=== PATIENT | female | born 1965 | race Caucasian/White ===

== ENCOUNTER → 2016-11-14 | Outpatient (REF) | payer MEDICARE, MEDICAID ==
[~2016-11-14] MED LIST: /CARBXR20T PO; /DIVA50TA PO; /METO25TAB PO; AMLO5TAB2 PO; AMOX500C PO; ASTE137S; ATOR1TAB19 PO; BACL10TA2 PO; BENA25CA PO; BISA5TAB64 PO; CARB100C PO; CARB20TAXR PO; CITA40TA PO; CITA40TA4 PO; CYCL10TA PO; DEXA2TA PO; DIVA125C5 PO; GABA300C2 PO; HYDR-3713 PO; HYDR1CR EXT; INSULANT SC; KEFL500C7 PO; LISI-542 PO; LISI5TAB PO; LOPR1TAB6 PO; MAGN400C2 PO; METF500T PO; METO25TA74 PO; MOM30SS PO; NORCOTAB PO; OMEP20CA3 PO; PANT40TA2 PO; PERC7.5T12 PO; PHENYTOIN PO; SENE8.6T3 PO; SOMA350T PO; TRAZ50TA2 PO; TRAZ50TA4 PO; TRAZO50TA PO; TYLE325T5 PO; VARE1TA PO
[2016-11-14 17:29] LABS: BASO % 0.4 % (0.0-1.0); EOS # 0.2 K/mm3 (0.0-0.50); EOS % 3.1 % (0.0-3.0); LARGE UNSTAINED CELL # 0.2 K/mm3 (0.0-0.4); LARGE UNSTAINED CELL % 2.8 % (0.0-4.0); LYMPH # 1.5 K/mm3 (1.5-4.5); LYMPH % 26.7 % (24.0-44.0); MEAN CORPUSCULAR HEMOGLOBIN 28.7 pg (27.0-33.0); MEAN CORPUSCULAR HGB CONC 32.8 g/dl (32.0-36.5); MEAN CORPUSCULAR VOLUME 87.4 fl (80.0-96.0); MONO # 0.4 K/mm3 (0.0-0.8); MONO % 6.4 % (0.0-5.0); NEUTROPHILS # 3.5 K/mm3 (1.8-7.7); NEUTROPHILS % 60.5 % (36.0-66.0); PLATELET COUNT, AUTOMATED 275 k/mm3 (150-450); RED CELL DISTRIBUTION WIDTH 13.3 % (11.5-14.5); WHITE BLOOD COUNT 5.7 K/mm3 (4.0-10.0)
[2016-11-14 17:43] LABS: ALBUMIN 3.8 GM/DL (3.2-5.2); ALBUMIN/GLOBULIN RATIO 0.93 (1.00-1.93); ALKALINE PHOSPHATASE 96 U/L (45-117); ALT/SGPT 38 U/L (12-78); ANION GAP 11 MEQ/L (8-16); AST/SGOT 24 U/L (15-37); BILIRUBIN,TOTAL 0.7 MG/DL (0.2-1.0); BLOOD UREA NITROGEN 12 MG/DL (7-18); CALCIUM LEVEL 8.8 MG/DL (8.5-10.1); CARBON DIOXIDE LEVEL 24 MEQ/L (21-32); CHLORIDE LEVEL 102 MEQ/L (98-107); CHOLESTEROL LEVEL 180 MG/DL (<200); CREATININE FOR GFR 0.94 MG/DL (0.55-1.02); GLOMERULAR FILTRATION RATE > 60.0 (>51); GLUCOSE, FASTING 288 MG/DL (70-105); SODIUM LEVEL 137 MEQ/L (136-145); TOTAL PROTEIN 7.9 GM/DL (6.4-8.2); TRIGLYCERIDES LEVEL 289 MG/DL (<150)
[2016-11-14 18:35] LABS: ERYTHROCYTE SEDIMENTATION RATE 11 mm/hr (0-30)
== END ==
LOC: M SFHCCLAY 10:22
PROVIDERS: ATTEND Family Medicine
DX: I10 Essential (primary) hypertension (principal); R21 Rash and other nonspecific skin eruption; E11.9 Type 2 diabetes mellitus without complications; E78.5 Hyperlipidemia, unspecified
CPT/HCPCS: 80053; 80061; 83036; 85025; 85652; 86038; 86140; 86200; 86431; G0463

== ENCOUNTER 2017-05-30 13:27 | Day surgery (SDC) | payer MEDICARE, MEDICAID ==
[~2017-05-30] VITALS: Ht 172.7 cm; Wt 105.2 kg
[~2017-05-30 13:27] MED LIST changes: +KEFL500C17 PO; -KEFL500C7 PO; +METF500T13 PO; +METO1TAB32 PO; -METO25TA74 PO; +TRAZ50TA11 PO; -TRAZ50TA4 PO
[2017-05-30] MEDS ORDERED: BYDU1INJ SC (13:42)
[2017-05-30] MEDS ORDERED: INVO100T PO (13:42)
[2017-05-30] MEDS ORDERED: NS 1,000 ML IV SCH (13:45)
[2017-05-30 14:27] LABS: ANION GAP 7 MEQ/L (8-16); BLOOD UREA NITROGEN 10 MG/DL (7-18); CALCIUM LEVEL 8.9 MG/DL (8.5-10.1); CARBON DIOXIDE LEVEL 26 MEQ/L (21-32); CHLORIDE LEVEL 107 MEQ/L (98-107); GLOMERULAR FILTRATION RATE > 60.0 (>51); GLUCOSE, FASTING 100 MG/DL (70-105); POTASSIUM SERUM 3.9 MEQ/L (3.5-5.1); SODIUM LEVEL 140 MEQ/L (136-145)
[2017-05-30 14:34] LABS: BASO # 0.1 10^3/uL (0.0-0.2); BASO % 0.6 % (0.0-1.0); EOS # 0.1 10^3/uL (0.0-0.50); EOS % 1.4 % (0.0-3.0); IMMATURE GRANULOCYTE % 0.4 % (0-0); LYMPH % 26.1 % (24.0-44.0); MEAN CORPUSCULAR HEMOGLOBIN 28.1 pg (27.0-33.0); MEAN CORPUSCULAR HGB CONC 33.6 g/dl (32.0-36.5); MEAN CORPUSCULAR VOLUME 83.5 fl (80.0-96.0); MONO # 0.8 10^3/uL (0.0-0.8); MONO % 10.3 % (0.0-5.0); NEUTROPHILS # 4.7 10^3/uL (1.8-7.7); NEUTROPHILS % 61.2 % (36.0-66.0); PLATELET COUNT, AUTOMATED 267 10^3/uL (150-450); RED CELL DISTRIBUTION WIDTH 14.6 % (11.5-14.5); WHITE BLOOD COUNT 7.8 10^3/uL (4.0-10.0)
[2017-05-30 14:38] LABS: ADD MORPHOLOGY? NO
[2017-05-30] MEDS ORDERED: HYDR50TA70 PO (14:53)
[2017-05-30] MEDS ORDERED: BACL10TA2 PO (14:53)
[2017-05-30] MEDS ORDERED: ATOR1TAB21 PO (14:53)
[2017-05-30] MEDS ORDERED: METO1TAB87 PO (14:53)
[2017-05-30] MEDS ORDERED: MAGN500T14 PO (14:53)
[2017-05-30] MEDS ORDERED: METF-729 PO (14:53)
[2017-05-30] MEDS ORDERED: ceFAZolin 2 GM/D5W 50 ML IV BAG (J0690) As Ordered ONE (15:02)
[2017-05-30] MEDS ORDERED: ceFAZolin 1GM INJ (J0690) As Ordered ONE (15:02)
[2017-05-30] MEDS ORDERED: MORPHINE 2 MG/ML 1ML SYRINGE IV PRN ×2 (15:45→18:30)
[2017-05-30] MEDS ORDERED: MORPHINE 2 MG/ML 1ML SYRINGE As Ordered ONE (15:46)
[2017-05-30] MEDS ORDERED: PROPOFOL 200 MG/20 ML VIAL As Ordered ONE ×2 (16:39→17:30)
[2017-05-30] MEDS ORDERED: LIDOCAINE 2% INJ 100 MG/5 ML SDV (FOR ANES.) As Ordered ONE (16:39)
[2017-05-30] MEDS ORDERED: fentaNYL 100 MCG/2 ML INJECTION (J3010) As Ordered ONE (16:39)
[2017-05-30] MEDS ORDERED: MIDAZOLAM INJ 2 MG/2 ML VIAL (J2250) As Ordered ONE (16:40)
[2017-05-30] MEDS ORDERED: NORCO, ANEXSIA 5/325MG TABLET (HYDROcodone/ACETAMINOPHEN) As Ordered ONE (18:17)
[2017-05-30] MEDS ORDERED: ONDANSETRON 4MG/2ML VIAL (J2405) As Ordered ONE (18:17)
[2017-05-30] MEDS: NORCO, ANEXSIA 5/325MG TABLET (HYDROcodone/ACETAMINOPHEN) PO PRN (18:29)
[2017-05-30] MEDS ORDERED: fentaNYL 100 MCG/2 ML INJECTION (J3010) IV PRN (18:30)
[2017-05-30] MEDS ORDERED: ONDANSETRON 4MG/2ML VIAL (J2405) IV PRN (18:30)
[2017-05-30] MEDS ORDERED: LR 1,000 ML IV SCH (18:30)
[2017-05-30] MEDS ORDERED: MORPHINE 4 MG/ML 1ML SYRINGE IV PRN (18:30)
[2017-05-30] MEDS ORDERED: NORCO, ANEXSIA 5/325MG TABLET (HYDROcodone/ACETAMINOPHEN) PO PRN (18:30)
--- NOTE | 2017-05-30 18:32 | REP ---
Right ankle three intraoperative fluoroscopic views: There is internal fixation of the lateral medial malleoli. The final films demonstrate the hardware and fractures to be in satisfactory positions alignment. Fluoroscopic exposure time is 26 seconds. Fluoroscopic images are performed with last image hold technology. These images require no additional radiation. Signed by Juno Campbell MD 05/30/2017 06:24 P
[2017-05-30 19:45] VITALS: BP 158/79
[2017-05-30 20:15] VITALS: BP 121/61
[2017-05-30] MEDS ORDERED: LISINOPRIL 5 MG TAB PO SCH (21:00)
[2017-05-30] MEDS ORDERED: HumaLOG INSULIN (NovoLOG) PER UNIT SC SCH (21:00)
[2017-05-30] MEDS ORDERED: CitaloPRAM (CeleXA) 20 MG TAB PO SCH (21:00)
[2017-05-30 21:15] VITALS: BP 130/77
[2017-05-30 21:25] VITALS: BP 130/71
[2017-05-30] MEDS: NS 1,000 ML IV SCH (21:35)
--- NOTE | 2017-05-30 21:49 | ECGEPIP ---
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
[2017-05-30 22:15] VITALS: BP 128/70
[2017-05-30 23:15] VITALS: BP 127/73
[2017-05-31] MEDS: NORCO, ANEXSIA 5/325MG TABLET (HYDROcodone/ACETAMINOPHEN) PO PRN ×4 (00:08→12:08)
[2017-05-31 00:15] VITALS: BP 125/72
[2017-05-31 02:00] VITALS: BP 123/81
[2017-05-31 06:00] VITALS: BP 142/78
[2017-05-31] MEDS ORDERED: HYDR-3713 PO (06:53)
[2017-05-31] MEDS ORDERED: ASPI325T PO (06:53)
[2017-05-31] MEDS: NS 1,000 ML IV SCH (07:00)
[2017-05-31] MEDS: HumaLOG INSULIN (NovoLOG) PER UNIT SC SCH ×2 (07:30→12:00)
[2017-05-31] MEDS ORDERED: PANTOPRAZOLE 40MG TAB (PROTONIX) PO SCH (09:00)
--- NOTE | 2017-05-31 10:16 | RO ---
DATE OF PROCEDURE: 05/30/2017 PREPROCEDURE DIAGNOSIS: Bimalleolar ankle fracture with syndesmotic injury. POSTPROCEDURE DIAGNOSIS: Right bimalleolar ankle fracture. Syndesmotic injury. PROCEDURE: 1. Open reduction internal fixation of right bimalleolar ankle fracture. 2. Stabilization of syndesmosis with a 4.5 cannulated screw. SURGEON: Dr. Con Danielson [facility] ARCHITECT: ANESTHESIA: Spinal. COMPLICATIONS: None. ESTIMATED BLOOD LOSS: Less than 20 mL. TOURNIQUET TIME: 55 minutes. PROCEDURE: Antibiotics were given intravenously preoperatively and successful spinal anesthetic was induced, a tourniquet was placed on right thigh and not inflated. The right lower extremity was carefully prepped and draped in the usual sterile fashion. Then the leg was then elevated and after appropriate time out, the tourniquet inflated. I first addressed the lateral aspect of the ankle by making a longitudinal incision and Bovie cautery was used to coagulate crossing vessels. Otherwise we made full thickness flap down to the fracture site which was identified. I irrigated out the fracture site and made sure I could get anatomic reduction with the point of reduction forceps and confirmed that with fluoroscopic imaging. I then addressed the medial side of the ankle by making a small longitudinal medial incision. Careful dissection through the soft tissues to protect the saphenous vein and nerves was performed down to the fracture site which was identified, opened and irrigated copiously and then I was able to get an open anatomic reduction with point of reduction forceps confirmed by the fluoroscopic image. The piece was relatively small thus I elevated to use a single screw. The guide pin from the 4.5 cannulated screw set was then placed across the fracture site and checked with both the AP, mortise and lateral planes that it was in good position. I measured and placed a 44 partially threaded 4.5 cannulated screw after pre-drilling just the near cortex. This provided excellent firm fixation anatomically to that fracture. Fluoroscopic imaging once the screw was in was confirmed once again that it was in good position and the fracture well reduced. I then turned attention back to the lateral side of the ankle, used the point of reduction forceps once again to get an open anatomic reduction. Once I had done that, I placed an interfragmentary compression screw from anterior to posterior using the 3.5 and then the 2.5 drill using the top hat. However, the available bone to apply the screw was very thin and it had very limited fixation but there was a bite of the screw adequate enough that I kept the screw in place and kept the clamp in position while I contoured it an 8 hole one-third tubular plate. I bent the tip distally appropriately and then fixed the distal aspect of the plate with a cancellous screw and then I secured a 3.5 cortical screw proximal to the fracture site to be sure the plate was aligned with the fibula. I then filled the remaining proximal four holes with 3.5 cortical screws and then the second most distal screw I filled with a 4.0 cancellous screw. Both cancellous screws had excellent purchase and then I left the third most distal screw hole to be used for syndesmotic stabilization. Given the fact I had tenuous repair of the interfragmentary compression screw and this was a relatively high fracture, there is likely some syndesmotic instability, I elected to proceed with a syndesmotic stabilization. I used the guide pin from the 4.5 cannulated screws to drill parallel to the joint, measured and placed the 4.5 cannulated screw across the joint under fluoroscopic imaging and once that was completed, I checked in AP, lateral and mortise planes that now the fracture was nice and anatomically reduced and the hardware in good position. At this point, I was satisfied with the repair, it was very stable. I let the tourniquet down, irrigated out the wounds, closed the deep subdermal tissues with interrupted #2-0 PDS sutures, skin was closed with jocelin covered by Adaptic dry sterile bulky dressing, and she was placed in a well padded short leg plaster cast and then was transferred to the recovery room in stable condition. There were no intraoperative complications. cc: Con Danielson
--- NOTE | 2017-05-31 10:52 | HPE ---
EMERGENCY ROOM (ER) CONSULTATION AND ADMISSION NOTE DATE OF ADMISSION: 05/30/2017 REASON FOR ADMISSION: Right ankle bimalleolar fracture. PRESENT ILLNESS: She is a 51-year-old female, missed a step at her porch at home while she was moving from [place] to [place], [place], this morning and twisted her ankle significantly, fell, and no other injury. Was brought to the emergency room at [facility], was evaluated, and then transferred to [facility] after having been found to have an unstable fracture of the right ankle. Presents today, and I was called to see her for this injury. She does not complain of any other soreness or pain or injury other than the right ankle, which has been splinted, and she does have a small area of abrasion over the anterior aspect of her right knee. No loss of consciousness. No shortness of breath. 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 PAST MEDICAL HISTORY: Noninsulin-dependent diabetes. History of subarachnoid hemorrhage with left-sided stroke. History of depression. History of high blood pressure. Hypercholesterolemia. History of a seizure disorder. PAST SURGICAL HISTORY: She has had C5-6 cervical fusion. She has had a craniotomy for a subarachnoid hemorrhage. Open reduction and internal fixation (ORIF) right wrist fracture. Total abdominal hysterectomy. Right knee epiphyseodesis. Ulnar nerve decompressive surgery. SOCIAL HISTORY: She quit smoking. Does not drink alcohol excessively. She is retired. 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 She is single but has supportive neighbors. She has a home wheelchair and walker that she uses. Her medications at home include: - atorvastatin - baclofen - citalopram - lisinopril - metformin - pantoprazole - trazodone - diazepam - She also gets a weekly injection of a diabetic medicine. ALLERGIES TO MEDICATIONS: No known drug allergies. REVIEW OF SYSTEMS: Otherwise negative and detail, as well as per the history of present illness. On examination, she is alert pleasant female. Temperature at the [facility] is 97. Oxygen (O2) saturations are 97% on room air. Blood pressure 135/66. Respirations 18. Pulse is 68. HEENT examination was benign for any acute trauma. She could elevate both arms up overhead. There is no evidence of any trauma to her clavicles, humeri, elbows, wrists, or forearms. She had a healed scar over the volar aspect of the right forearm and right elbow. Lungs were clear to auscultation. Heart was regular. I do not detect significant murmur. Abdomen was obese. Right lower extremity had a healed scar medially from prior medial epiphyseodesis. She had a posterior splint with an carlota wrap. She could move her toes but had some decreased sensation, which is chronic, she describes from her neuropathy, but there is a palpable dorsalis pedis pulse. There is tenderness medially and laterally about that right ankle. There is a small abrasion over the anterior aspect of the patella area superficially. Left lower extremity is benign. She could do a straight-leg raise on the right leg. No irritability or pain or soreness of the right hip otherwise. Her laboratory studies at the [facility] showed an 8.8 white count with a 38.2 hematocrit, 241 platelets. Electrocardiogram (EKG): Normal sinus rhythm with left axis deviation. X-ray of the right ankle at the [facility] shows a bimalleolar ankle fracture. The mortise is intact. It is a fairly high oblique distal fibula fracture with a transverse small medial malleolar fracture. Tibia/fibula x-rays did not show any other fractures other than her ankle. Present other laboratory studies ordered here by the emergency room physician are presently pending. However, a basic metabolic profile (BMP) did come back showing a sodium of 140, potassium 3.9, chloride 107, bicarbonate 26, BUN 10, creatinine 0.7, calcium 8.9. She is not on blood thinners. So, impression is a 51-year-old female with right bimalleolar ankle fracture. It is a relatively unstable fracture pattern. I would recommend to her, which I did and discussed in detail, that we treat this with open reduction and internal fixation to help try to establish good stability and good anatomic position as best as possible in hopes of getting a good outcome from this fracture. Other options of nonsurgical management would be difficult to manage this in a stable fashion, which may result in some troubles down the road if this heals in a malunion but, unfortunately, doing an open reduction internal fixation requires surgery with the risks involved in that, including infection, damage to nerves, blood vessels, anesthetic complications, phlebitis, embolism, amongst others, failure of the bone to heal properly, amongst other potential outcomes, which are discussed with her. She understands that, but she would like to get this fixed, as well. She understands the need. She has been nothing by mouth, actually since yesterday. I have discussed this with the operating room and discussed this with the emergency room providers, and we plan to proceed when the operating room is available.
--- NOTE | 2017-06-02 15:28 | DSES ---
DATE OF ADMISSION: 05/30/2017 DATE OF DISCHARGE: 05/31/2017 ADMISSION DIAGNOSIS: Bimalleolar ankle fracture with syndesmotic injury. OTHER DIAGNOSES: Ikh-chhpdfk-wftnvdzcr diabetes, CVA, depression, hypertension, elevated cholesterol, seizure disorder. DISCHARGE DIAGNOSIS: Bimalleolar right ankle fracture with syndesmotic injury status post open reduction internal fixation and syndesmosis stabilization. OPERATION PERFORMED: Open reduction internal fixation of a right bimalleolar ankle fracture and stabilization of the syndesmosis. HISTORY: This a 51-year-old female patient who sustained injury to her right ankle when she fell at home. She was seen at the [facility] initially, transferred to the [facility] after noted to have an unstable bimalleolar ankle fracture with syndesmotic injury on the right side. She was seen in the emergency room and was elected to go forth with open reduction internal fixation of her fracture. HOSPITAL COURSE: The patient was admitted on day of surgery and underwent an open reduction internal fixation of her right bimalleolar ankle fracture and stabilization of syndesmotic ligament. She did well in surgery and there was no complications. Her postoperative course was uncomplicated and her hospital stay was uncomplicated as well. On day of discharge she was non-weightbearing on the right lower extremity. She was given instructions to include the use of crutches and the use of her splint and followup. She will followup in our office in 7-10 days for surgical followup. She will resume her preoperative medications and diet. She will use oral pain medications for pain control. Please refer to the medical record for further details.
== END 2017-05-31 12:45 | disposition home or self-care (01) ==
LOC: EDBD 13:27 → M ED 13:27 → M SDC 14:10 → M MS5PR 18:50 → M SDC 05-31 12:45
PROVIDERS: ATTEND Orthopaedic Surgery
DX: S82.841A Displaced bimalleolar fracture of right lower leg, initial encounter for closed fracture (principal); S93.431A Sprain of tibiofibular ligament of right ankle, initial encounter; X50.0XXA Overexertion from strenuous movement or load, initial encounter; Y92.008 Other place in unspecified non-institutional (private) residence as the place of occurrence of the external cause; Y93.89 Activity, other specified; Y99.8 Other external cause status; E11.9 Type 2 diabetes mellitus without complications; I10 Essential (primary) hypertension; E78.00 Pure hypercholesterolemia, unspecified; G40.909 Epilepsy, unspecified, not intractable, without status epilepticus; I69.998 Other sequelae following unspecified cerebrovascular disease; G47.30 Sleep apnea, unspecified; M54.9 Dorsalgia, unspecified; F31.9 Bipolar disorder, unspecified; Z91.09 Other allergy status, other than to drugs and biological substances; Z79.899 Other long term (current) drug therapy; Z98.1 Arthrodesis status; Z90.710 Acquired absence of both cervix and uterus
CPT/HCPCS: 27814; 73610; 80048; 85025; 93005; 96374; 96375; 96376; 97162; 99284; C1776; G8978; G8979; G8980; J0690; J2250; J2405; J3010

== ENCOUNTER → 2018-03-16 | Outpatient (CLI) | payer MEDICARE, MEDICAID ==
[2018-03-16 11:08] LABS: BASO # 0.1 10^3/uL (0.0-0.2); BASO % 0.5 % (0.0-1.0); EOS # 0.2 10^3/uL (0.0-0.50); EOS % 1.6 % (0.0-3.0); HEMATOCRIT 42.1 % (36.0-47.0); HEMOGLOBIN 13.9 g/dl (12.0-15.5); IMMATURE GRANULOCYTE % 0.5 % (0-3.0); LYMPH % 17.9 % (24.0-44.0); MEAN CORPUSCULAR HEMOGLOBIN 28.8 pg (27.0-33.0); MEAN CORPUSCULAR VOLUME 87.2 fl (80.0-96.0); MONO % 8.7 % (0.0-5.0); NEUTROPHILS # 7.9 10^3/uL (1.8-7.7); NEUTROPHILS % 70.8 % (36.0-66.0); PLATELET COUNT, AUTOMATED 265 10^3/uL (150-450); RED BLOOD COUNT 4.83 10^6/uL (4.00-5.40); RED CELL DISTRIBUTION WIDTH 13.9 % (11.5-14.5); WHITE BLOOD COUNT 11.1 10^3/uL (4.0-10.0)
[2018-03-16 11:20] LABS: INR 0.93; PROTHROMBIN TIME 12.5 SECONDS (12.1-14.4)
[2018-03-16 11:31] LABS: COLLAGEN EPINEPHRINE 153 SECONDS (74-162)
[2018-03-16 11:51] LABS: ALBUMIN 3.7 GM/DL (3.2-5.2); ALBUMIN/GLOBULIN RATIO 0.88 (1.00-1.93); ALKALINE PHOSPHATASE 93 U/L (45-117); ALT/SGPT 30 U/L (12-78); ANION GAP 8 MEQ/L (8-16); AST/SGOT 18 U/L (7-37); BILIRUBIN,TOTAL 0.6 MG/DL (0.2-1.0); BLOOD UREA NITROGEN 15 MG/DL (7-18); CARBON DIOXIDE LEVEL 28 MEQ/L (21-32); CHLORIDE LEVEL 104 MEQ/L (98-107); CREATININE FOR GFR 0.97 MG/DL (0.55-1.30); GLOMERULAR FILTRATION RATE > 60.0 (>51); GLUCOSE, FASTING 139 MG/DL (70-100); POTASSIUM SERUM 4.8 MEQ/L (3.5-5.1); SODIUM LEVEL 140 MEQ/L (136-145); TOTAL PROTEIN 7.9 GM/DL (6.4-8.2)
== END ==
LOC: M LAB 10:43
DX: Z01.818 Encounter for other preprocedural examination (principal); R94.31 Abnormal electrocardiogram [ECG] [EKG]; Z79.01 Long term (current) use of anticoagulants; Z79.899 Other long term (current) drug therapy
CPT/HCPCS: 71046

== ENCOUNTER 2018-03-30 06:11 | Inpatient (IN) | payer MEDICARE, MEDICAID ==
[2018-03-30] MEDS: **UNRESOLVED NON-FORMULARY MED ORDER XX (00:01)
[2018-03-30] MEDS ORDERED: ceFAZolin 2 GM/D5W 50 ML IV BAG (J0690 PER 500MG) As Ordered (06:40)
[2018-03-30] MEDS: LR 1,000 ML IV ×4 (07:10→20:45)
[2018-03-30 07:20] LABS: BEDSIDE GLUCOSE 122 MG/DL (70-105)
[2018-03-30] MEDS ORDERED: ROCURONIUM BROMIDE 50 MG/5 ML VIAL As Ordered ×2 (07:20→08:30)
[2018-03-30] MEDS ORDERED: MIDAZOLAM INJ 2 MG/2 ML VIAL (J2250) As Ordered (07:20)
[2018-03-30] MEDS ORDERED: fentaNYL 100 MCG/2 ML INJECTION (J3010) As Ordered ×4 (07:20→11:30)
[2018-03-30] MEDS ORDERED: PROPOFOL 200 MG/20 ML VIAL As Ordered (07:20)
[2018-03-30] MEDS ORDERED: LIDOCAINE 2% INJ 100 MG/5 ML SDV (FOR ANES.) As Ordered (07:21)
[2018-03-30] MEDS ORDERED: dexameTHASONE 4 MG/ML 1ML VIAL (J1100) As Ordered ×2 (07:23)
[2018-03-30] MEDS ORDERED: METOCLOPRAMIDE INJ 10MG/2ML VIAL (J2765) As Ordered (07:23)
[2018-03-30] MEDS ORDERED: ONDANSETRON 4MG/2ML VIAL (J2405) As Ordered (07:23)
[2018-03-30] MEDS ORDERED: GLYCOPYRROLATE INJ 0.2 MG/ML 2 ML VIAL As Ordered (09:26)
[2018-03-30] MEDS ORDERED: PHENYLephrine HCL 500 MCG/5 ML (100MCG/ML) SYRINGE (J2370) As Ordered (09:26)
[2018-03-30] MEDS: THROMBIN SOLN 20,000 UNITS KIT As Ordered (09:41)
[2018-03-30] MEDS ORDERED: PHENYLEPHRINE INJ 10MG/ML VIAL (J2370) As Ordered (09:51)
[2018-03-30] MEDS: BACITRACIN PWD 50,000 UNITS VIAL As Ordered (10:47)
[2018-03-30] MEDS: methylPREDNISolone SUSP 40 MG/ML (DEPO-medrol) VIAL (J1030) As Ordered (10:47)
[2018-03-30] MEDS ORDERED: KETOROLAC 60 MG/2 ML VIAL (J1885) As Ordered (10:50)
[2018-03-30 11:29] LABS: BEDSIDE GLUCOSE 176 MG/DL (70-105)
[2018-03-30] MEDS: NORCO, ANEXSIA 5/325MG TABLET (HYDROcodone/ACETAMINOPHEN) PO ×2 (11:30→20:47)
[2018-03-30] MEDS ORDERED: NORCO, ANEXSIA 5/325MG TABLET (HYDROcodone/ACETAMINOPHEN) As Ordered (11:30)
[2018-03-30] MEDS: fentaNYL 100 MCG/2 ML INJECTION (J3010) IV ×4 (11:30→11:55)
[2018-03-30] MEDS ORDERED: ONDANSETRON 4MG/2ML VIAL (J2405) IV ×2 (11:45→12:30)
[2018-03-30] MEDS ORDERED: ACETAMINOPHEN TAB 650MG DOSE (2X325MG) PO (12:30)
[2018-03-30 14:28] LABS: BEDSIDE GLUCOSE 160 MG/DL (70-105)
[2018-03-30] MEDS: HumaLOG INSULIN (NovoLOG) PER UNIT SC ×2 (14:43→20:49)
[2018-03-30] MEDS: diazePAM 5 MG TAB PO (17:20)
[2018-03-30] MEDS: HYDROXYCHLOROQUINE 200 MG TAB PO (17:49)
[2018-03-30] MEDS: MORPHINE 4 MG/ML 1ML VIAL/SYRINGE (J2270) IV ×2 (17:50→23:59)
[2018-03-30 19:50] LABS: BEDSIDE GLUCOSE 153 MG/DL (70-105)
[2018-03-30] MEDS: LISINOPRIL 5 MG TAB PO (20:46)
[2018-03-30] MEDS: METOPROLOL TART 25 MG TABLET PO (20:47)
[2018-03-31] MEDS: **UNRESOLVED NON-FORMULARY MED ORDER XX (00:01)
[2018-03-31 04:00] LABS: BEDSIDE GLUCOSE 115 MG/DL (70-105)
[2018-03-31] MEDS: MORPHINE 4 MG/ML 1ML VIAL/SYRINGE (J2270) IV (04:40)
[2018-03-31] MEDS: HumaLOG INSULIN (NovoLOG) PER UNIT SC (05:34)
[2018-03-31] MEDS: ATORVASTATIN 20 MG TAB PO (09:00)
[2018-03-31] MEDS: metFORMIN (GLUCOPHAGE) 1000 MG TABLET PO (09:00)
[2018-03-31] MEDS: DULoxetine 30 MG CAP (CYMBALTA) PO (09:00)
[2018-03-31] MEDS: HYDROXYCHLOROQUINE 200 MG TAB PO (09:00)
[2018-03-31] MEDS: amLODIPine 5 MG TAB PO (09:04)
[2018-03-31] MEDS: METOPROLOL TART 25 MG TABLET PO (09:04)
[2018-03-31] MEDS: NORCO, ANEXSIA 5/325MG TABLET (HYDROcodone/ACETAMINOPHEN) PO (09:05)
[2018-03-31] MEDS: OMEPRAZOLE 20 MG CAP PO (09:05)
[2018-03-31] MEDS: LR 1,000 ML IV (11:20)
== END 2018-03-31 11:24 | disposition home or self-care (01) | DRG 460 ==
LOC: M OR 06:11 → M MSPAV 12:52
PROVIDERS: Neurological Surgery
PROC: 0SG1071 Fusion of 2 or more Lumbar Vertebral Joints with Autologous Tissue Substitute, Posterior Approach, Posterior Column, Open Approach (ICD-10-PCS; principal; 2018-03-30 07:30)
PROC: 0SB20ZZ Excision of Lumbar Vertebral Disc, Open Approach (ICD-10-PCS; 2018-03-30 07:30)
DX: M47.27 Other spondylosis with radiculopathy, lumbosacral region (principal); E66.9 Obesity, unspecified; M48.062 Spinal stenosis, lumbar region with neurogenic claudication; E11.9 Type 2 diabetes mellitus without complications; I10 Essential (primary) hypertension; F32.9 Major depressive disorder, single episode, unspecified; G40.909 Epilepsy, unspecified, not intractable, without status epilepticus; E78.5 Hyperlipidemia, unspecified; M32.9 Systemic lupus erythematosus, unspecified; Z86.73 Personal history of transient ischemic attack (TIA), and cerebral infarction without residual deficits; Z98.41 Cataract extraction status, right eye; Z98.42 Cataract extraction status, left eye; Z87.81 Personal history of (healed) traumatic fracture; Z79.84 Long term (current) use of oral hypoglycemic drugs; Z79.899 Other long term (current) drug therapy; Z87.891 Personal history of nicotine dependence; Z68.32 Body mass index [BMI] 32.0-32.9, adult

== ENCOUNTER → 2019-02-16 | Outpatient (REF) | payer MEDICARE, MEDICAID ==
[~2019-02-16] MED LIST changes: -/CARBXR20T PO; -/DIVA50TA PO; -/METO25TAB PO; +AMLO5TAB6 PO; +ASPI-1 PO; +ATOR1TAB21 PO; +BYDU1INJ SC; +DEPA1TAB3 PO; +DULO1CAP2 PO; +HYDR-3715 PO; -HYDR1CR EXT; +HYDR1CRE93 EXT; +HYDR200T3 PO; +HYDR50TA70 PO; +INVO100T PO; +MAGN500T14 PO; +METF-729 PO; +METF10004 PO; +METO1TAB87 PO; -NORCOTAB PO; -PANT40TA2 PO; +PANT40TA3 PO; +TEGR1TAB PO; +TIZA4CAP PO; +TRAZ-252 PO; +TRAZ1TAB36 PO; -TRAZ50TA11 PO; -TRAZO50TA PO; +VALI5TAB PO
[2019-02-16 13:23] LABS: AMORPHOUS SEDIMENT SMALL (NEGATIVE); APPEARANCE, URINE HAZY (CLEAR); BACTERIA, URINE AUTO 1+ (NEGATIVE); BILIRUBIN, URINE AUTO NEGATIVE (NEGATIVE); BLOOD, URINE BLOOD NEGATIVE (NEGATIVE); COLOR, URINE YELLOW (YELLOW); GLUCOSE, URINE (UA) AUTO 3+ mg/dL (NEGATIVE); KETONE, URINE AUTO NEGATIVE (NEGATIVE); LEUKOCYTE ESTERASE, URINE AUTO TRACE (NEGATIVE); MUCUS, URINE SMALL (NEGATIVE); NITRITE, URINE AUTO NEGATIVE (NEGATIVE); PROTEIN, URINE AUTO NEGATIVE (NEGATIVE); RBC, URINE AUTO 2 /HPF (0-3); SPECIFIC GRAVITY URINE AUTO 1.009 (1.002-1.035); SQUAMOUS EPITHELIAL CELL UR AU 5 /HPF (0-6); UROBILINOGEN, URINE AUTO 0.2 mg/dL (0.0-2.0); WBC, URINE AUTO 8 /HPF (0-3)
[2019-02-16 13:47] LABS: BASO % 0.5 % (0.0-1.0); EOS # 0.2 10^3/uL (0.0-0.50); EOS % 1.7 % (0.0-3.0); HEMATOCRIT 42.1 % (36.0-47.0); HEMOGLOBIN 13.4 g/dl (12.0-15.5); LYMPH # 2.1 10^3/uL (1.5-4.5); LYMPH % 24.2 % (24.0-44.0); MEAN CORPUSCULAR HEMOGLOBIN 26.8 pg (27.0-33.0); MEAN CORPUSCULAR HGB CONC 31.8 g/dl (32.0-36.5); MEAN CORPUSCULAR VOLUME 84.2 fl (80.0-96.0); MONO # 0.6 10^3/uL (0.0-0.8); MONO % 7.1 % (0.0-5.0); NEUTROPHILS # 5.8 10^3/uL (1.8-7.7); NEUTROPHILS % 66.2 % (36.0-66.0); PLATELET COUNT, AUTOMATED 328 10^3/uL (150-450); WHITE BLOOD COUNT 8.8 10^3/uL (4.0-10.0)
[2019-02-16 13:49] LABS: CREATININE,RANDOM URINE 51.3 MG/DL; TOTAL PROTEIN,RANDOM URINE 24.2 MG/DL (0.0-12.0)
[2019-02-16 13:51] LABS: ALBUMIN 3.9 GM/DL (3.2-5.2); BILIRUBIN,TOTAL 0.4 MG/DL (0.2-1.0); CALCIUM LEVEL 9.5 MG/DL (8.5-10.1); CREATININE FOR GFR 1.15 MG/DL (0.55-1.30); GLOMERULAR FILTRATION RATE 52.3 (>51); POTASSIUM SERUM 4.9 MEQ/L (3.5-5.1); TOTAL PROTEIN 8.2 GM/DL (6.4-8.2)
[2019-02-21 10:08] LABS: ANTI DS-DNA AB <1:10 titer (.)
== END ==
LOC: M SFHCPLAZ 10:08
PROVIDERS: ATTEND Internal Medicine Rheumatology
DX: R76.8 Other specified abnormal immunological findings in serum (principal)
CPT/HCPCS: 36415; 80053; 81001; 82570; 84156; 85025; 86160; 86225; G0463

== ENCOUNTER → 2020-02-17 | Outpatient (REF) | payer MEDICARE, MEDICAID ==
[~2020-02-17] MED LIST changes: +CYCL-707 PO; -CYCL10TA PO; -DULO1CAP2 PO; +DULO1CAP5 PO
[2020-02-17 16:21] LABS: BASO # 0.1 10^3/uL (0.0-0.2); BASO % 0.6 % (0.0-1.0); EOS # 0.3 10^3/uL (0.0-0.5); EOS % 2.9 % (0.0-3.0); HEMATOCRIT 41.1 % (36.0-47.0); HEMOGLOBIN 12.8 g/dl (12.0-15.5); LYMPH # 2.4 10^3/uL (1.5-5.0); LYMPH % 24.2 % (24.0-44.0); MEAN CORPUSCULAR HGB CONC 31.1 g/dl (32.0-36.5); MEAN CORPUSCULAR VOLUME 80.4 fl (80.0-96.0); MONO # 0.7 10^3/uL (0.0-0.8); MONO % 7.1 % (0.0-5.0); NEUTROPHILS # 6.5 10^3/uL (1.5-8.5); NEUTROPHILS % 64.9 % (36.0-66.0); PLATELET COUNT, AUTOMATED 360 10^3/uL (150-450); RED BLOOD COUNT 5.11 10^6/uL (4.00-5.40); WHITE BLOOD COUNT 10.1 10^3/uL (4.0-10.0)
[2020-02-17 16:42] LABS: ALBUMIN 3.4 GM/DL (3.2-5.2); ALT/SGPT 19 U/L (12-78); BILIRUBIN,TOTAL 0.3 MG/DL (0.2-1.0); BLOOD UREA NITROGEN 17 MG/DL (7-18); CALCIUM LEVEL 9.1 MG/DL (8.5-10.1); CARBON DIOXIDE LEVEL 25 MEQ/L (21-32); CHLORIDE LEVEL 104 MEQ/L (98-107); CHOLESTEROL LEVEL 154 MG/DL (<200); CHOLESTEROL RISK RATIO 3.347 (<5); CREATININE FOR GFR 0.95 MG/DL (0.55-1.30); GLOMERULAR FILTRATION RATE > 60.0 (>51); GLUCOSE, FASTING 121 MG/DL (70-100); HDL CHOLESTEROL 46 MG/DL (>40); LDL CHOLESTEROL 80 MG/DL (<100); NON-HDL-C 108 MG/DL; POTASSIUM SERUM 4.9 MEQ/L (3.5-5.1); SODIUM LEVEL 136 MEQ/L (136-145); TOTAL PROTEIN 7.6 GM/DL (6.4-8.2); TRIGLYCERIDES LEVEL 140 MG/DL (<150)
== END ==
LOC: M SFHCCLAY 13:31
PROVIDERS: ATTEND Family Medicine
DX: I10 Essential (primary) hypertension (principal); E78.5 Hyperlipidemia, unspecified
CPT/HCPCS: 80053; 80061; 85025; G0463

== ENCOUNTER → 2020-03-20 | Outpatient (CLI) | payer MEDICARE, MEDICAID ==
[~2020-03-20] MED LIST changes: +AMLO1TAB24 PO; -AMLO5TAB6 PO; +PANT40TA29 PO; -PANT40TA3 PO
--- NOTE | 2020-03-20 20:26 | REPVR ---
PROCEDURE INFORMATION: Exam: MR Head Without Contrast Exam date and time: 03/20/2020 4:46 PM Age: 54 years old Clinical indication: Condition or disease; Other: History of stroke, change in vision, unsteady gait; Prior surgery; Surgery date: 6+ months; Surgery type: Coiling TECHNIQUE: Imaging protocol: MR of the head without contrast. COMPARISON: MRI-Brain W/CON 05/16/2013 9:56 AM FINDINGS: Brain: Small focus of hyperintensity on diffusion-weighted imaging projecting over the posterior superior aspect of the cerebellum near the tentorium may represent artifact. No other diffusion-weighted abnormalities. Status post right posterior parietal craniotomy with white matter changes either related to infarct or prior surgery. Diffuse parenchymal atrophy. Scattered foci T2 lengthening demonstrated in the periventricular and centrum semiovale white matter indicating mild age related white matter disease. Ventricles: Ipsilateral ex vacuo enlargement of the posterior horn of the right lateral ventricle. Bones/joints: Unremarkable. Sinuses: Normal as visualized. No acute sinusitis. Mastoid air cells: Normal as visualized. No mastoid effusion. Orbits: Unremarkable. Soft tissues: Unremarkable. IMPRESSION: 1. Status post right posterior parietal craniotomy with white matter changes either related to infarct or prior surgery. 2. Ipsilateral ex vacuo enlargement of the posterior horn of the right lateral ventricle. 3. Diffuse parenchymal atrophy. 4. Scattered foci T2 lengthening demonstrated in the periventricular and centrum semiovale white matter indicating mild age related white matter disease. Electronically signed by: Jf Lind On 03/20/2020 20:25:51 PM
== END ==
LOC: M RAD 03-06 08:49
PROVIDERS: ATTEND Family Medicine
DX: H53.9 Unspecified visual disturbance (principal); R26.81 Unsteadiness on feet; Z86.73 Personal history of transient ischemic attack (TIA), and cerebral infarction without residual deficits

== ENCOUNTER 2021-01-16 21:23 | Inpatient (IN) | payer MEDICARE, MEDICAID ==
[~2021-01-16] VITALS: Ht 172.7 cm; Wt 91.5 kg
[~2021-01-16 21:23] MED LIST changes: -LISI-542 PO; +LISI-898 PO
[2021-01-16 23:06] VITALS: BP 135/71
[2021-01-16] MEDS ORDERED: MOM 30ML SUSPENSION UDC PO PRN (23:45)
[2021-01-16] MEDS ORDERED: DEXTROSE 50% 50 ML SYRINGE IV PRN (23:45)
[2021-01-16] MEDS ORDERED: MAALOX 30 ML SUSP *UDC PO PRN (23:45)
[2021-01-16] MEDS ORDERED: GLUCOSE 4GM CHEW TABLET PO PRN (23:45)
[2021-01-16] MEDS ORDERED: GLUCAGON INJ 1MG VIAL SC PRN (23:45)
[2021-01-16] MEDS ORDERED: ACETAMINOPHEN TAB 650MG DOSE (2X325MG) PO PRN (23:45)
--- NOTE | 2021-01-16 23:46 | HPEPDOC ---
[facility] Medical History & Physical Date of Admission January 17, 2021 Date of Service: January 17, 2021 Primary Care Physician: Daniel Gagnon Attending Physician: SHIRLEY SOLIS MD History and Physical TIME OF SERVICE: 1151pm CHIEF COMPLAINT: foot pain HISTORY OF PRESENT ILLNESS: This 55 yr old F has had right 1st toe pain due to an ulcer for about 2 weeks; she didnt have f/c but had difficulties walking so she went to [facility] were her vital signs were noted to be wnl; her blood work was remarkable for a Hg of 10, CRP of 40.4, Mg of 1.6, albumin of 2.8 and glucose f 152. [place], the provider taking care of her felt that the xray findings were c/w osteomyelitis, therefore he started her on Vanc & Zozyn and requested transfer here for to see the pt. REVIEW OF SYSTEMS: 12-point review of systems negative except as listed in HPI PAST MEDICAL/ SURGICAL HISTORY: NIDDM, pseudoseizures, disorder, Depression, GERD, DLP, essential HTN, CVA, hx of Endocarditis, unspecified valvulopathy, SLE, Craniotomy (reason unclear), obesity, LUDIVINA BIPAP 8/, bilateral ulnar release surgeries, bilateral cataract surgeries, hysterectomy, R arm ORFI, R ankle ORIF, R knee surgery, C5-6 fusion, L4-5 fusion SOCIAL HISTORY: She smokes, drinks alcohol occasionally, is unemployed and lives w her significant other who is a Nuclear Chemistry Technician FAMILY HISTORY: Father Lung cancer, HTN, CAD / Mother CKD / Brother of a O D in January / ALLERGIES: Please see below. HOME MEDICATIONS: Please see below. PHYSICAL EXAMINATION: Vital Signs Date Time Temp Pulse Resp B/P (MAP) Pulse Ox O2 Delivery O2 Flow Rate FiO2 01/16/21 23:06 98.1 75 20 135/71 (92) 94 Room Air GENERAL APPEARANCE: well nourished and developed / NAD HEENT: EOMI / MMM&P CARDIOVASCULAR: RRR/NMRG LUNGS: CTAB on RA ABDOMEN: contour obese MUSCULOSKELETAL: KAILEY x 4 INTEGUMENT: not flushed, pale or or diaphoretic / there is an ulcer that is > 3cm with purulent discharge at the right hallux NEUROLOGICAL: CN 2-12 grossly intact /speech not dysarthric PSYCHIATRIC: A&O x 3 /able to understand and follow all commands LABORATORY DATA: see HPI IMAGING: see HPI MICROBIOLOGY: COVID test done at [facility] ASSESSMENT: is a 55 yr old w NIDDM, Depression, DLP, HTN, CVA, SLE, obesity & LUDIVINA who was transferred from [facility] for surgical management of suspected right hallux osteomyelitis. PLAN: 1 Suspected Right Hallux Osteomyelitis Likely due to DM Ulcer She doesnt meet SIRS criteria Her RCRI score is 1, so we will check her pro-BNP prior to proceeding with surgery (if the pro-BNP >300 she will need to be put on telemetry and have troponins checked daily / if its <300 she will not need any additional tests) Plan: f/u repeat blood work / c/w Zosyn / per d/w will keep her NPO w IVF and anticpate surgery in the AM 2 Normocytic anemia Plan: f/u Iron studies and stool occult 3 NIDDM, Plan: f/u accuchecks / hypoglycemia protocol / sliding scale insulin / hold oral anti-glycemicS / f/u A1C (target A1C is <7 to 6.5%) 4 SLE Plan; Hydroxychloroquine 5 Essential HTN Plan: Amlodipine, Metoprolol / hold lisinopril to reduce perioperative risk of hypotensionand resume it on on day #2 after surgery 6 Depression / Anxiety ? Plan: Duloxetine Diazepam, Trazodone 7 CVA, DLP Plan: Atorvastatin 8 Obesity & LUDIVINA BMI of 31.5 complicates care Plan: f/u A1C DVT px w pending surgery Dispo: home after at least 2 midnights stay / may need PT eval prior to discha rge to see if she needs a walker temporarily Home Medications Scheduled Amlodipine Besylate (Amlodipine Besylate) 5 Mg Tab, 5 MG PO DAILY Atorvastatin Calcium (Atorvastatin Calcium) 20 Mg Tab, 20 MG PO DAILY Buspirone HCl (Buspirone HCl) 5 Mg Tablet, 10 MG PO QHS Cholecalciferol (Vitamin D3) (Vitamin D3) 1,000 Unit Tablet, 1,000 UNITS PO DAILY Duloxetine Hcl (Duloxetine HCl) 60 Mg Capsule.dr, 120 MG PO DAILY Exenatide Microspheres (Bydureon Bcise) 2 Mg/0.85 Ml Auto.injct, 2 MG SC QWEEK WEDNESDAYS Lisinopril (Lisinopril) 5 Mg Tab, 5 MG PO QHS Metformin HCl (Metformin HCl ER) 500 Mg Tab.er.24h, 1,000 MG PO BID Metoprolol Tartrate (Metoprolol Tartrate) 25 Mg Tab, 75 MG PO BID Pantoprazole Sodium (Pantoprazole Sodium) 40 Mg Tab, 40 MG PO DAILY Trazodone HCl (Trazodone HCl) 150 Mg Tablet, 150 MG PO QHS Scheduled PRN Diazepam (Valium) 5 Mg Tab, 5 MG PO TID PRN for SEIZURES Allergies Coded Allergies: DYE'S (COLOR'S NOT IODINATED) (Verified Allergy, Unknown, HAIR DYE, 03/18/18) SHIRLEY SOLIS MD January 16, 2021 23:46
[2021-01-16] MEDS ORDERED: TRAZ1TAB14 PO (23:58)
[2021-01-16] MEDS ORDERED: DULO1CAP6 PO (23:59)
[2021-01-16] MEDS ORDERED: BYDU2INJ7 SC (23:59)
[2021-01-16] MEDS ORDERED: BUSP5TA PO (23:59)
[2021-01-16] MEDS ORDERED: D31000TA2 PO (23:59)
[2021-01-16] MEDS ORDERED: METF-723 PO (23:59)
[2021-01-17] VITALS (7 sets, daily range): BP systolic 125–151; BP diastolic 62–75
[2021-01-17 00:11] LABS: HEMATOCRIT 32.8 % (36.0-47.0); HEMOGLOBIN 10.4 g/dl (12.0-15.5); MEAN CORPUSCULAR HEMOGLOBIN 25.8 pg (27.0-33.0); MEAN CORPUSCULAR HGB CONC 31.7 g/dl (32.0-36.5); MEAN CORPUSCULAR VOLUME 81.4 fl (80.0-96.0); PLATELET COUNT, AUTOMATED 349 10^3/uL (150-450); RED BLOOD COUNT 4.03 10^6/uL (4.00-5.40)
[2021-01-17] MEDS ORDERED: busPIRone 5 MG TAB PO SCH (00:20)
[2021-01-17] MEDS ORDERED: diazePAM 5MG TABLET PO PRN (00:20)
[2021-01-17] MEDS ORDERED: RAMELTEON 8 MG TAB (ROZEREM) PO PRN (00:20)
[2021-01-17] MEDS: D5W/0.9% SODIUM CHLORIDE 1,000 ML IV SCH ×2 (00:22→19:35)
[2021-01-17] MEDS: HumaLOG INSULIN (NovoLOG) PER UNIT SC SCH ×4 (00:23→19:10)
[2021-01-17 00:30] LABS: HEMOGLOBIN A1c 6.3 %
[2021-01-17 00:34] LABS: ERYTHROCYTE SEDIMENTATION RATE 68 mm/hr (0-30)
[2021-01-17 00:43] LABS: ALBUMIN 2.8 GM/DL (3.2-5.2); ALT/SGPT 13 U/L (12-78); BILIRUBIN,TOTAL 0.3 MG/DL (0.2-1.0); BLOOD UREA NITROGEN 12 MG/DL (7-18); C REACTIVE PROTEIN QUANTITATIV 3.67 MG/DL (0.00-0.30); CALCIUM LEVEL 8.3 MG/DL (8.5-10.1); CARBON DIOXIDE LEVEL 28 MEQ/L (21-32); CHLORIDE LEVEL 106 MEQ/L (98-107); CREATININE FOR GFR 0.74 MG/DL (0.55-1.30); GLOMERULAR FILTRATION RATE > 60.0 (>51); GLUCOSE, FASTING 101 MG/DL (70-100); NT-PRO BNP 213 PG/ML (<125); POTASSIUM SERUM 3.8 MEQ/L (3.5-5.1); SODIUM LEVEL 137 MEQ/L (136-145); TOTAL PROTEIN 6.9 GM/DL (6.4-8.2)
[2021-01-17] MEDS: NICOTINE 21MG/24HR 1 EA TRANSDERMAL TD SCH ×2 (00:48→21:11)
[2021-01-17] MEDS: METOPROLOL TART 25 MG TABLET PO SCH ×3 (00:49→21:13)
[2021-01-17] MEDS: busPIRone 10 MG TAB PO SCH ×2 (00:49→21:11)
[2021-01-17] MEDS: traZODone 50 MG TAB PO SCH ×2 (00:49→21:12)
[2021-01-17] MEDS: MORPHINE 4 MG/ML 1ML VIAL/SYRINGE (J2270) IV PRN ×4 (00:50→22:49)
[2021-01-17] MEDS: PIPERACILLIN/TAZOBACTAM SOD 3.375 GM in D5W MINI-BAG PLUS 50 ML IV SCH ×4 (01:45→19:35)
[2021-01-17 06:22] LABS: HEMATOCRIT 33.6 % (36.0-47.0); HEMOGLOBIN 10.5 g/dl (12.0-15.5); MEAN CORPUSCULAR HEMOGLOBIN 25.7 pg (27.0-33.0); MEAN CORPUSCULAR HGB CONC 31.3 g/dl (32.0-36.5); MEAN CORPUSCULAR VOLUME 82.2 fl (80.0-96.0); PLATELET COUNT, AUTOMATED 372 10^3/uL (150-450); RED BLOOD COUNT 4.09 10^6/uL (4.00-5.40); WHITE BLOOD COUNT 6.5 10^3/uL (4.0-10.0)
[2021-01-17 06:35] LABS: PROTHROMBIN TIME 13.4 SECONDS (12.5-14.3)
[2021-01-17 06:36] LABS: PARTIAL THROMBOPLASTIN TIME 36.2 SECONDS (24.2-38.5)
[2021-01-17 06:47] LABS: MAGNESIUM LEVEL 1.7 MG/DL (1.8-2.4); PERCENT SATURATION 8.6 % (13.2-45.0)
[2021-01-17 06:53] LABS: BLOOD UREA NITROGEN 10 MG/DL (7-18); CALCIUM LEVEL 8.7 MG/DL (8.5-10.1); CARBON DIOXIDE LEVEL 27 MEQ/L (21-32); CHLORIDE LEVEL 108 MEQ/L (98-107); CREATININE FOR GFR 0.72 MG/DL (0.55-1.30); GLOMERULAR FILTRATION RATE > 60.0 (>51); GLUCOSE, FASTING 107 MG/DL (70-100); POTASSIUM SERUM 3.7 MEQ/L (3.5-5.1); SODIUM LEVEL 140 MEQ/L (136-145)
[2021-01-17] MEDS ORDERED: MAG SULF 1GM/100ML (MAG RUN) 1 GM in IV 1 EA IV ONE (09:00)
--- NOTE | 2021-01-17 09:01 | REP ---
INDICATION: ulcer, eval for osteomyelitis hallux. COMPARISON: None. TECHNIQUE: Four views FINDINGS: There is evidence of lysis of the distal metaphysis of the proximal phalanx of the 1st digit with destruction of the interphalangeal joint. There is abnormal scalloping of the medial soft tissues of the 1st digit. There is evidence of diffuse soft tissue swelling. Degenerative changes seen throughout the foot. IMPRESSION: Suspect findings for acute osteomyelitis and soft tissue injury involving the 1st digit as described above. Consider follow-up with MRI before and after intravenous gadolinium. <Electronically signed by Gamal Tariq > 01/17/21 [id number]
[2021-01-17] MEDS: PANTOPRAZOLE 40MG TAB (PROTONIX) PO SCH (09:36)
[2021-01-17] MEDS: amLODIPine 5 MG TAB PO SCH (09:36)
[2021-01-17] MEDS: ATORVASTATIN 20 MG TAB PO SCH (09:36)
[2021-01-17] MEDS: DULoxetine 30 MG CAP (CYMBALTA) PO SCH (09:37)
--- NOTE | 2021-01-17 14:19 | IPNPDOC ---
Date Seen The patient was seen on 01/17/21. Progress Note SUBJECTIVE: Pain uncontrolled earlier today, improved with regimen modified. OR today by Dr. Adrian planned. Denies fevers, chill, n/v/d, SOB, chest pain OBJECTIVE: PHYSICAL EXAMINATION: VS: Please see below GENERAL APPEARANCE: well nourished and developed / NAD HEENT: EOMI / MMM&P CARDIOVASCULAR: RRR/NMRG LUNGS: CTAB on RA ABDOMEN: contour obese MUSCULOSKELETAL: KAILEY x 4 INTEGUMENT: not flushed, pale or or diaphoretic / there is an ulcer that is > 3cm with purulent discharge at the right hallux NEUROLOGICAL: CN 2-12 grossly intact /speech not dysarthric PSYCHIATRIC: A&O x 3 /able to understand and follow all commands LABORATORY DATA: Please see below MICRO: Bcx x 1pending F/u path/micro from OR IMAGING: R foot XR: Suspect findings for acute osteomyelitis and soft tissue injury involving the 1st digit as described. Consider follow-up with MRI before and after intraveno us gadolinium. MICROBIOLOGY: COVID neg ASSESSMENT: Ms. Nettles is a 55 yr old w NIDDM, Depression, DLP, HTN, CVA, SLE, obesity & LUDIVINA admitted for tx of right hallux osteomyelitis. PLAN: Right Hallux Osteomyelitis likely 2/2 to DM ulcer -WBC wnl, afebrile, incr inflammatory markers -OR today, f/u surgical note by Dr. Adrian -F/u micro above -Zosyn Acute hypomagnesemia -Mag run -f/u repeat lab in Am NIDDM, controlled -HbA1c 6.3 -ISS Q6H, FS Q6Hrs, currently NPO and can transition to CC when out of surgery. TOMEKA -Low iron -start ferrous sulfate BID with BR when taking PO -Occult blood ordered -Daily CBC SLE -Stable -Hydroxychloroquine Essential HTN -Stable -Resume home amlodipine, Metoprolol after surgery -Holding lisinopril to reduce perioperative risk of hypotensionand resume it on on day #2 after surgery Depression / Anxiety ? -Stable -Resume PO duloxetine, diazepam, trazodone when taking diet Hx of CVA -Not on home ASA, resume statin when able DLP -Atorvastatin LUDIVINA -BMI of 31.5 complicates care DVT px -saba/scd currently, start enoxaparin after surgery DISPOSITION: will need PT/OT after surgery. Goal is home when medically improved. VS, I&O, 24H, Fishbone Vital Signs/I&O Vital Signs Date Time Temp Pulse Resp B/P (MAP) Pulse Ox O2 Delivery O2 Flow Rate FiO2 01/17/21 10:58 18 01/17/21 09:36 70 152/74 01/17/21 06:00 98.0 97 Room Air I&O- Last 24 Hours up to 6 AM 01/17/21 06:00 Intake Total 350 ml Output Total 1100 ml Balance -750 ml Laboratory Data 24H LABS Laboratory Tests 2 01/17/21 00:03: Nucleated Red Blood Cells % (auto) 0.0, Erythrocyte Sedimentation Rate 68H, Anio n Gap 3L, Glomerular Filtration Rate > 60.0, Estimated Mean Plasma Glucose 134H, Hemoglobin A1c 6.3, Lactic Acid Level 1.9, Calcium Level 8.3L, Total Bilirubin 0.3, Aspartate Amino Transf (AST/SGOT) 9, Alanine Aminotransferase (ALT/SGPT) 13, Alkaline Phosphatase 82, C-Reactive Protein, Quantitative 3.67H, BA-Oaz-H-Type Natriuretic Peptide 213H, Total Protein 6.9, Albumin 2.8L, Albumin/Globulin Ratio 0.7L 01/17/21 00:07: Bedside Glucose (Misc Panel) 111H 01/17/21 05:19: Bedside Glucose (Misc Panel) 125H 01/17/21 05:44: Nucleated Red Blood Cells % (auto) 0.0, Magnesium Level 1.7L, Iron Level 27L, Total Iron Binding Capacity 315, Transferrin % Saturation 8.6L, Ferritin 15 01/17/21 05:45: Prothrombin Time 13.4, Prothromb Time International Ratio 1.00, Activated Partial Thromboplast Time 36.2, Anion Gap 5L, Glomerular Filtration Rate > 60.0, Calcium Level 8.7 01/17/21 11:58: Bedside Glucose (Misc Panel) 140H CBC/BMP Laboratory Tests 01/17/21 00:03 01/17/21 05:44 01/17/21 05:45 Microbiology Microbiology 01/17/21 Respiratory Virus Panel (PCR) (JANET) - Final, Complete 01/17/21 Blood Culture, Received Pending Chantel Lazo MD January 17, 2021 14:19
[2021-01-17] MEDS ORDERED: BUPIVACAINE HCL 0.5% 30 ML VIAL As Ordered ONE (17:26)
[2021-01-17] MEDS ORDERED: LIDOCAINE 1% SDV 30ML VIAL As Ordered ONE (17:26)
[2021-01-17] MEDS ORDERED: MIDAZOLAM INJ 2MG/2ML VIAL (J2250 PER 1MG) As Ordered ONE (17:51)
[2021-01-17] MEDS ORDERED: propofoL 200 MG/20 ML VIAL As Ordered ONE ×2 (17:51→17:57)
[2021-01-17] MEDS ORDERED: fentaNYL 100 MCG/2 ML INJECTION (J3010) As Ordered ONE (17:51)
[2021-01-17] MEDS ORDERED: ONDANSETRON 4MG/2ML VIAL IV PRN (18:50)
[2021-01-17] MEDS ORDERED: oxyCODONE 5MG TAB PO PRN (18:50)
[2021-01-17] MEDS ORDERED: HYDROMORPHONE HCL 0.5 MG/ 0.5 ML SYRINGE (J1170 PER 1) IV PRN (18:50)
[2021-01-17] MEDS ORDERED: fentaNYL 100 MCG/2 ML INJECTION (J3010) IV PRN (18:50)
[2021-01-17] MEDS ORDERED: LR 1,000 ML IV SCH (18:50)
[2021-01-17] MEDS ORDERED: NORCO, ANEXSIA 5/325MG TABLET (HYDROcodone/ACETAMINOPHEN) PO PRN ×2 (19:30→20:30)
[2021-01-17] MEDS: NORCO, ANEXSIA 5/325MG TABLET (HYDROcodone/ACETAMINOPHEN) PO PRN (21:12)
[2021-01-18] VITALS (7 sets, daily range): BP systolic 104–158; BP diastolic 56–75
[2021-01-18] MEDS: HumaLOG INSULIN (NovoLOG) PER UNIT SC SCH ×5 (00:20→20:09)
[2021-01-18] MEDS: PIPERACILLIN/TAZOBACTAM SOD 3.375 GM in D5W MINI-BAG PLUS 50 ML IV SCH ×4 (02:04→20:29)
[2021-01-18] MEDS: NORCO, ANEXSIA 5/325MG TABLET (HYDROcodone/ACETAMINOPHEN) PO PRN ×4 (04:14→19:36)
[2021-01-18 06:10] LABS: HEMOGLOBIN 10.4 g/dl (12.0-15.5); MEAN CORPUSCULAR HGB CONC 31.5 g/dl (32.0-36.5); MEAN CORPUSCULAR VOLUME 82.5 fl (80.0-96.0); PLATELET COUNT, AUTOMATED 339 10^3/uL (150-450); WHITE BLOOD COUNT 6.4 10^3/uL (4.0-10.0)
[2021-01-18 06:30] LABS: BLOOD UREA NITROGEN 10 MG/DL (7-18); CALCIUM LEVEL 8.2 MG/DL (8.5-10.1); CARBON DIOXIDE LEVEL 26 MEQ/L (21-32); CHLORIDE LEVEL 112 MEQ/L (98-107); CREATININE FOR GFR 0.72 MG/DL (0.55-1.30); GLOMERULAR FILTRATION RATE > 60.0 (>51); GLUCOSE, FASTING 124 MG/DL (70-100); SODIUM LEVEL 143 MEQ/L (136-145)
[2021-01-18] MEDS: MORPHINE 4 MG/ML 1ML VIAL/SYRINGE (J2270) IV PRN (08:11)
[2021-01-18] MEDS: DULoxetine 30 MG CAP (CYMBALTA) PO SCH (08:21)
[2021-01-18] MEDS: ATORVASTATIN 20 MG TAB PO SCH (08:21)
[2021-01-18] MEDS: PANTOPRAZOLE 40MG TAB (PROTONIX) PO SCH (08:21)
[2021-01-18] MEDS: METOPROLOL TART 25 MG TABLET PO SCH ×2 (08:24→20:23)
[2021-01-18] MEDS: amLODIPine 5 MG TAB PO SCH (08:24)
--- NOTE | 2021-01-18 08:31 | RO ---
OPERATIVE NOTE DATE OF OPERATION: 01/17/2021 PREOPERATIVE DIAGNOSIS: Right hallux diabetic ulcer, osteomyelitis. POSTOPERATIVE DIAGNOSIS: Right hallux diabetic ulcer, osteomyelitis. PROCEDURE: Right hallux amputation. SURGEON: Harley Adrian DPM SHELTER MONITOR: None. ANESTHESIA: Monitored anesthesia care with preop injection of 17 mL of 1:1 mixture of 1% Lidocaine plain and 0.5% Marcaine plain. ESTIMATED BLOOD LOSS: 10 mL. MATERIALS: 3-0 nylon. INJECTABLES: None. SPECIMEN: Right hallux and wound cultures aerobic and anaerobic. COMPLICATIONS: None. CONDITION: Stable. INDICATIONS: Selina Nettles is a 55-year-old diabetic female who was admitted to [facility] with complaints of right hallux wound and infection. X-rays were taken which showed erosive changes suggestive of osteomyelitis and ulcer was present with obvious bone exposed. Decision was made to bring her to the operating room for amputation. The patient site and side were identified and marked in the preoperative holding area. Consent was reviewed and obtained. All risks, complications and alternatives to the procedure were explained to the patient in detail and all questions were answered. DESCRIPTION OF PROCEDURE: The patient was brought to the operating room and placed on the operating table in supine position. Monitored anesthesia care was delivered by the anesthesia team. Preop injection of 17 mL of 1:1 mixture of 1% Lidocaine plain and 0.5% Marcaine plain was injected into the right foot. Right foot was prepped and draped in usual sterile fashion. Tourniquet was not used during the procedure. Wound was inspected. There was wound on the medial aspect of the hallux with exposed bone and joint. Elliptical type incision was made around the ulceration and toe. Mid toe was disarticulated using #15 blade at the metatarsophalangeal joint. Toe was sent for pathology, cultures aerobic and anaerobic were taken of the wound. Bovie was used to cauterize small bleeding vessels. Site was irrigated with normal saline. The incision was repaired with 3-0 nylon. Sterile dressings were applied. The patient was brought to PACU with vital signs stable and neurovascular status intact. She will be admitted to the floor for antibiotics.
--- NOTE | 2021-01-18 11:16 | CR ---
CONSULTATION DATE: 01/17/2021 REASON FOR CONSULTATION: Right hallux infection. HISTORY OF PRESENT ILLNESS: Selina Nettles is a 55-year-old diabetic female who has ulceration on her right hallux. She states it has been there about 2-3 weeks. She did not seek treatment for this. The wound has since worsened. She went to [facility], had x-rays and there were findings suggestive of osteomyelitis. She was transferred here for further care and evaluation. MEDICAL HISTORY: Significant for diabetes, seizure disorder, depression, GERD, COPD, essential hypertension, history of CVA, history of endocarditis, VEGA craniotomy, obesity, obstructive sleep apnea on BiPAP. SURGICAL HISTORY: Bilateral ulnar nerve release, cataracts, hysterectomy, right ankle ORIF, right knee surgery, cervical fusion C5-6 and lumbar fusion L4-5. FAMILY HISTORY: Positive for lung cancer, hypertension, coronary artery disease. SOCIAL HISTORY: Positive for smoking, positive for alcohol use. ALLERGIES: DYES. PHYSICAL EXAMINATION: VITALS: She has been afebrile since admission. LOWER EXTREMITIES: There is erythema and edema to the right foot extending from the hallux. There is ruborous discoloration to the toe. There is open wound on the medial aspect of the hallux with exposed bone and joint. LABORATORY DATA: Reviewed. White cell count 6.5. ESR on admission 68. CRP is 3.67. IMAGING DATA: X-rays were taken and reviewed. There are erosive changes to the distal phalanx consistent with osteomyelitis as well as some erosive changes noted at the distal aspect of the proximal phalanx. IMPRESSION: Diabetic female with right hallux osteomyelitis. PLAN: Will bring the patient to the operating room now for hallux amputation.
--- NOTE | 2021-01-18 12:34 | IPN ---
PROGRESS NOTE DATE: 01/18/2021 Patient seen and examined. Denies overnight complaints. States pain control with the hydrocodone. Lower extremity examination: Amputation site incision well coapted. Erythema reduced. ASSESSMENT: A 55-year-old diabetic female, status post right hallux amputation. PLAN: Await operating room (OR) culture. Patient will be able to be discharged on oral medication times two weeks once culture are available.
--- NOTE | 2021-01-18 17:42 | IPNPDOC ---
Date Seen The patient was seen on 01/18/21. Progress Note SUBJECTIVE: POD 1 right great toe amputation, pathology and cultures sent. Awaiting results before discharge, cleared PT with walker. On IV abx. Denies fevers, chill, n/v/d, SOB, chest pain OBJECTIVE: PHYSICAL EXAMINATION: VS: Please see below GENERAL APPEARANCE: well nourished and developed / NAD HEENT: EOMI / MMM&P CARDIOVASCULAR: RRR/NMRG LUNGS: CTAB on RA ABDOMEN: contour obese MUSCULOSKELETAL: KAILEY x 4 INTEGUMENT: not flushed, pale or or diaphoretic / right great toe amputated, si te clean, nonsuppurative NEUROLOGICAL: CN 2-12 grossly intact /speech not dysarthric PSYCHIATRIC: A&O x 3 /able to understand and follow all commands LABORATORY DATA: Please see below MICRO: Aerobic wound culture right great toe 01/17/21 with sensitivities pending: STAPHYLOCOCCUS AUREUS, HEAVY STREPTOCOCCUS GROUP G, HEAVY BACILLUS SP., HEAVY Anerobic wound cx 01/17/21: pending Bcx x 1- NG F/u path from OR IMAGING: R foot XR: Suspect findings for acute osteomyelitis and soft tissue injury involving the 1st digit as described. Consider follow-up with MRI before and after intravenous gadolinium. MICROBIOLOGY: COVID neg ASSESSMENT: Ms. Nettles is a 55 yr old w NIDDM, Depression, DLP, HTN, CVA, SLE, obesity & LUDIVINA admitted for tx of right hallux osteomyelitis. PLAN: Right Hallux Osteomyelitis likely 2/2 to DM ulcer -POD 1 right great toe amputatio -WBC wnl, afebrile -Polymicrobial infection seen above on wound cx- follow sensitivities -Awaiting cx results before discharge, c/w IV Zosyn -Daily labs, follow inflammatory markers NIDDM, controlled -HbA1c 6.3 -ISS , FS, CC diet TOMEKA -Low iron -start ferrous sulfate BID with BR -Occult blood ordered -Daily CBC SLE -Stable -Hydroxychloroquine Essential HTN -Stable -Resume home amlodipine, Metoprolol, ACEi Depression / Anxiety ? -Stable -Resume home meds duloxetine, diazepam, trazodone Hx of CVA -Not on home ASA, resume statin when able DLP -Atorvastatin LUDIVINA -BMI of 31.5 complicates care DVT px -Enoxaparin Resolved issues: Acute hypomagnesemia DISPOSITION: Cleared PT: home with walker at discharge. Can d/c when cultures and sensitivities are back. VS, I&O, 24H, Fishbone Vital Signs/I&O Vital Signs Date Time Temp Pulse Resp B/P (MAP) Pulse Ox O2 Delivery O2 Flow Rate FiO2 01/18/21 15:13 18 01/18/21 14:25 96.0 64 146/70 (95) 97 Room Air 01/17/21 18:28 3.0 I&O- Last 24 Hours up to 6 AM 01/18/21 06:00 Intake Total 1820 ml Output Total 1000 ml Balance 820 ml Laboratory Data 24H LABS Laboratory Tests 2 01/17/21 18:40: Bedside Glucose (Misc Panel) 120H 01/18/21 00:19: Bedside Glucose (Misc Panel) 131H 01/18/21 05:38: Nucleated Red Blood Cells % (auto) 0.0, Anion Gap 5L, Glomerular Filtration Rate > 60.0, Calcium Level 8.2L 01/18/21 12:10: Bedside Glucose (Misc Panel) 149H 01/18/21 16:39: Bedside Glucose (Misc Panel) 141H CBC/BMP Laboratory Tests 01/18/21 05:38 Microbiology Microbiology 01/17/21 Respiratory Virus Panel (PCR) (JANET) - Final, Complete 01/17/21 Blood Culture - Preliminary, Resulted No growth after 24 hours . All specim... 01/17/21 Anaerobic Culture, Received Pending 01/17/21 Gram Stain - Final, Resulted 01/17/21 Wound Culture - Preliminary, Resulted Staphylococcus Aureus Streptococcus Group G Bacillus Sp., Not Anthracis Chantel Lazo MD January 18, 2021 17:42
[2021-01-18] MEDS: D5W/0.9% SODIUM CHLORIDE 1,000 ML IV SCH (19:36)
[2021-01-18] MEDS: lisinopriL 5 MG TAB PO SCH (20:23)
[2021-01-18] MEDS: traZODone 50 MG TAB PO SCH (20:29)
[2021-01-18] MEDS: NICOTINE 21MG/24HR 1 EA TRANSDERMAL TD SCH (20:29)
[2021-01-18] MEDS: busPIRone 10 MG TAB PO SCH (20:30)
[2021-01-19] MEDS: PIPERACILLIN/TAZOBACTAM SOD 3.375 GM in D5W MINI-BAG PLUS 50 ML IV SCH ×4 (01:18→20:47)
[2021-01-19] MEDS: NORCO, ANEXSIA 5/325MG TABLET (HYDROcodone/ACETAMINOPHEN) PO PRN ×4 (01:18→20:48)
[2021-01-19 06:00] VITALS: BP 142/64
[2021-01-19 07:29] LABS: HEMATOCRIT 34.9 % (36.0-47.0); HEMOGLOBIN 10.9 g/dl (12.0-15.5); MEAN CORPUSCULAR HEMOGLOBIN 25.9 pg (27.0-33.0); MEAN CORPUSCULAR HGB CONC 31.2 g/dl (32.0-36.5); MEAN CORPUSCULAR VOLUME 82.9 fl (80.0-96.0); PLATELET COUNT, AUTOMATED 353 10^3/uL (150-450); RED BLOOD COUNT 4.21 10^6/uL (4.00-5.40); WHITE BLOOD COUNT 6.2 10^3/uL (4.0-10.0)
[2021-01-19 07:54] LABS: BLOOD UREA NITROGEN 9 MG/DL (7-18); C REACTIVE PROTEIN QUANTITATIV 1.26 MG/DL (0.00-0.30); CARBON DIOXIDE LEVEL 26 MEQ/L (21-32); CHLORIDE LEVEL 110 MEQ/L (98-107); GLOMERULAR FILTRATION RATE > 60.0 (>51); GLUCOSE, FASTING 125 MG/DL (70-100); POTASSIUM SERUM 3.8 MEQ/L (3.5-5.1); SODIUM LEVEL 141 MEQ/L (136-145)
[2021-01-19 07:56] LABS: ERYTHROCYTE SEDIMENTATION RATE 53 mm/hr (0-30)
[2021-01-19] MEDS: PANTOPRAZOLE 40MG TAB (PROTONIX) PO SCH (08:25)
[2021-01-19] MEDS: ATORVASTATIN 20 MG TAB PO SCH (08:25)
[2021-01-19] MEDS: DULoxetine 30 MG CAP (CYMBALTA) PO SCH (08:26)
[2021-01-19] MEDS: METOPROLOL TART 25 MG TABLET PO SCH ×2 (08:26→20:48)
[2021-01-19] MEDS: amLODIPine 5 MG TAB PO SCH (08:26)
[2021-01-19] MEDS: HumaLOG INSULIN (NovoLOG) PER UNIT SC SCH ×4 (08:27→20:30)
[2021-01-19] MEDS: ENOXAPARIN 40MG/0.4ML SYRINGE (J1650 PER 10MG) SC SCH (10:20)
[2021-01-19] MEDS: D5W/0.9% SODIUM CHLORIDE 1,000 ML IV SCH (11:45)
[2021-01-19 14:00] VITALS: BP 168/76
--- NOTE | 2021-01-19 17:30 | IPNPDOC ---
Date Seen The patient was seen on 01/19/21. Progress Note SUBJECTIVE: Is upset on exam today, states she wants to go home. It was explained she would be leaving AMA if she chose to leave and ultimately decided to stay. No other events overnight, awaiting cx sensitivities still. Denies fevers, chill, n/v/d, SOB, chest pain OBJECTIVE: PHYSICAL EXAMINATION: VS: Please see below GENERAL APPEARANCE: well nourished and developed / NAD HEENT: EOMI / MMM&P CARDIOVASCULAR: RRR/NMRG LUNGS: CTAB on RA ABDOMEN: contour obese MUSCULOSKELETAL: KAILEY x 4 INTEGUMENT: not flushed, pale or or diaphoretic / right great toe amputated, site clean, nonsuppurative, tender to touch , no increased swelling NEUROLOGICAL: CN 2-12 grossly intact /speech not dysarthric PSYCHIATRIC: A&O x 3 /able to understand and follow all commands LABORATORY DATA: Please see below MICRO: Aerobic wound culture right great toe 01/17/21 with sensitivities pending: STAPHYLOCOCCUS AUREUS, HEAVY STREPTOCOCCUS GROUP G, HEAVY BACILLUS SP., HEAVY Anerobic wound cx 01/17/21: pending Bcx x 1- NG COVID neg F/u path from OR IMAGING: R foot XR: Suspect findings for acute osteomyelitis and soft tissue injury involving the 1st digit as described. Consider follow-up with MRI before and after intravenous gadolinium. ASSESSMENT: Ms. Nettles is a 55 yr old w NIDDM, Depression, DLP, HTN, CVA, SLE, obesity & LUDIVINA admitted for tx of right hallux osteomyelitis. PLAN: Right Hallux Osteomyelitis likely 2/2 to DM ulcer -POD 2 right great toe amputation -WBC wnl, afebrile -Polymicrobial infection seen above on wound cx- follow sensitivities. Once we have these, can discuss d/c home with f/u with Dr. Adrian (podiatry) -C/w IV Zosyn for now -Daily labs, follow inflammatory markers NIDDM, controlled -HbA1c 6.3 -ISS , FS, CC diet TOMEKA -Low iron -Ferrous sulfate BID with BR -Occult blood ordered -Daily CBC SLE -Stable -Hydroxychloroquine Essential HTN -Stable -c/w amlodipine, Metoprolol, ACEi Depression / Anxiety -Very upset this AM -C/w home meds duloxetine, diazepam, trazodone Hx of CVA -Not on home ASA, resume statin when able DLP -Atorvastatin LUDIVINA -BMI of 31.5 complicates care DVT px -Enoxaparin Resolved issues: Acute hypomagnesemia DISPOSITION: Cleared PT: home with walker at discharge. Can d/c when cultures and sensitivities are back. VS, I&O, 24H, Fishbone Vital Signs/I&O Vital Signs Date Time Temp Pulse Resp B/P (MAP) Pulse Ox O2 Delivery O2 Flow Rate FiO2 01/19/21 15:29 18 Room Air 01/19/21 14:00 96.9 64 168/76 (106) 92 01/17/21 18:28 3.0 I&O- Last 24 Hours up to 6 AM 01/19/21 06:00 Intake Total 1825 ml Output Total 1450 ml Balance 375 ml Laboratory Data 24H LABS Laboratory Tests 2 01/18/21 19:53: Bedside Glucose (Misc Panel) 125H 01/19/21 07:05: Nucleated Red Blood Cells % (auto) 0.0, Erythrocyte Sedimentation Rate 53H, Anion Gap 5L, Glomerular Filtration Rate > 60.0, Calcium Level 8.0L, C-Reactive Protein, Quantitative 1.26H 01/19/21 11:42: Bedside Glucose (Misc Panel) 96 01/19/21 16:53: Bedside Glucose (Misc Panel) 95 CBC/BMP Laboratory Tests 01/19/21 07:05 Microbiology Microbiology 01/17/21 Respiratory Virus Panel (PCR) (JANET) - Final, Complete 01/17/21 Blood Culture - Preliminary, Resulted No Growth after 48 hours. All Specime... 01/17/21 Anaerobic Culture, Received Pending 01/17/21 Gram Stain - Final, Resulted 01/17/21 Wound Culture - Preliminary, Resulted Staphylococcus Aureus Streptococcus Group G Bacillus Sp., Not Anthracis Chantel Lazo MD January 19, 2021 17:30
[2021-01-19 18:00] VITALS: BP 141/77
[2021-01-19] MEDS: lisinopriL 5 MG TAB PO SCH (20:47)
[2021-01-19] MEDS: busPIRone 10 MG TAB PO SCH (20:47)
[2021-01-19] MEDS: traZODone 50 MG TAB PO SCH (20:47)
[2021-01-19] MEDS: NICOTINE 21MG/24HR 1 EA TRANSDERMAL TD SCH (20:47)
[2021-01-19 22:00] VITALS: BP 148/76
[2021-01-20] MEDS ORDERED: BENZOCAINE 20% GEL 9GM TUBE (ANBESOL MAX STRENGTH) TOP PRN (01:05)
[2021-01-20] MEDS: PIPERACILLIN/TAZOBACTAM SOD 3.375 GM in D5W MINI-BAG PLUS 50 ML IV SCH ×2 (03:11→08:22)
[2021-01-20 06:00] VITALS: BP 140/77
[2021-01-20] MEDS: DULoxetine 30 MG CAP (CYMBALTA) PO SCH (08:17)
[2021-01-20] MEDS: ATORVASTATIN 20 MG TAB PO SCH (08:17)
[2021-01-20] MEDS: PANTOPRAZOLE 40MG TAB (PROTONIX) PO SCH (08:17)
[2021-01-20 08:18] VITALS: BP 147/78
[2021-01-20] MEDS: METOPROLOL TART 25 MG TABLET PO SCH (08:18)
[2021-01-20] MEDS: amLODIPine 5 MG TAB PO SCH (08:18)
[2021-01-20] MEDS: NORCO, ANEXSIA 5/325MG TABLET (HYDROcodone/ACETAMINOPHEN) PO PRN (08:19)
[2021-01-20] MEDS: ENOXAPARIN 40MG/0.4ML SYRINGE (J1650 PER 10MG) SC SCH (08:21)
[2021-01-20] MEDS: HumaLOG INSULIN (NovoLOG) PER UNIT SC SCH ×2 (08:22→12:00)
[2021-01-20 08:35] LABS: HEMATOCRIT 35.6 % (36.0-47.0); HEMOGLOBIN 11.1 g/dl (12.0-15.5); MEAN CORPUSCULAR HEMOGLOBIN 25.7 pg (27.0-33.0); MEAN CORPUSCULAR HGB CONC 31.2 g/dl (32.0-36.5); MEAN CORPUSCULAR VOLUME 82.4 fl (80.0-96.0); PLATELET COUNT, AUTOMATED 382 10^3/uL (150-450); RED BLOOD COUNT 4.32 10^6/uL (4.00-5.40); WHITE BLOOD COUNT 6.1 10^3/uL (4.0-10.0)
[2021-01-20] MEDS ORDERED: PROB250C PO (08:56)
[2021-01-20] MEDS ORDERED: ACET1TAB55 PO (08:56)
[2021-01-20] MEDS ORDERED: CLIN150C15 PO (08:56)
[2021-01-20] MEDS ORDERED: TRAM50TA2 PO (08:56)
[2021-01-20 09:01] LABS: BLOOD UREA NITROGEN 11 MG/DL (7-18); CALCIUM LEVEL 8.9 MG/DL (8.5-10.1); CARBON DIOXIDE LEVEL 26 MEQ/L (21-32); CHLORIDE LEVEL 109 MEQ/L (98-107); CREATININE FOR GFR 0.81 MG/DL (0.55-1.30); GLOMERULAR FILTRATION RATE > 60.0 (>51); GLUCOSE, FASTING 108 MG/DL (70-100); POTASSIUM SERUM 4.4 MEQ/L (3.5-5.1); SODIUM LEVEL 140 MEQ/L (136-145)
--- NOTE | 2021-01-20 16:40 | DS.PDOC ---
Discharge Summary General Date of Admission January 16, 2021 at 23:06 Date of Discharge 01/20/21 Attending Physician: Chantel Lazo MD Discharge Summary HISTORY OF PRESENT ILLNESS: This 55 yr old F has had right 1st toe pain due to an ulcer for about 2 weeks; she didnt have f/c but had difficulties walking so she went to [facility] were her vital signs were noted to be wnl; her blood work was remarkable for a Hg of 10, CRP of 40.4, Mg of 1.6, albumin of 2.8 and glucose f 152. [place], the provider taking care of her felt that the xray findings were c/w osteomyelitis, therefore he started her on Vanc & Zozyn and requested transfer here for to see the pt. HOSPITAL COURSE: For right hallux osteomyelitis likely 2/2 to DM ulcer patient went for right great toe amputation 01/18/[address] Adrian. path and wound cultures sent. WBC remained wnl, she stayed afebrile. Polymicrobial infection with staph, strep and bacillus species identified and later sensitivities were resultsed. She was treated with IV Zosyn here. PT evaluated and suggested continued ambulation without servcies at home with walker. On 01/20/21 she was discharged with 7 days of PO clinda, pain meds, probiotic and f/u with Dr. Adrian after weekend. Wound care as listed in discharge instructions. Other chronic issues remained stable, see below. PAST MEDICAL/ SURGICAL HISTORY: NIDDM, pseudoseizures, disorder, Depression, GERD, DLP, essential HTN, CVA, hx of Endocarditis, unspecified valvulopathy, S LE, Craniotomy (reason unclear), obesity, LUDIVINA BIPAP /, bilateral ulnar release surgeries, bilateral cataract surgeries, hysterectomy, R arm ORFI, R ankle ORIF, R knee surgery, C5-6 fusion, L4-5 fusion SOCIAL HISTORY: She smokes, drinks alcohol occasionally, is unemployed and lives w her significant other who is a [employer] Work FAMILY HISTORY: Father Lung cancer, HTN, CAD / Mother CKD / Brother of a OD in January / DISCHARGE MEDS: Please see below PHYSICAL EXAMINATION: VS: Please see below GENERAL APPEARANCE: well nourished and developed / NAD HEENT: EOMI / MMM&P CARDIOVASCULAR: RRR/NMRG LUNGS: CTAB on RA ABDOMEN: contour obese MUSCULOSKELETAL: KAILEY x 4 INTEGUMENT: not flushed, pale or or diaphoretic / right great toe amputated, site clean, nonsuppurative, tender to touch , no increased swelling NEUROLOGICAL: CN 2-12 grossly intact /speech not dysarthric PSYCHIATRIC: A&O x 3 /able to understand and follow all commands LABORATORY DATA: Please see below MICRO: Aerobic wound culture right great toe 01/17/21 with sensitivities: STAPHYLOCOCCUS AUREUS, HEAVY STREPTOCOCCUS GROUP G, HEAVY BACILLUS SP., HEAVY Anerobic wound cx 01/17/21: pending Bcx x 1- NG COVID neg Dr. Adrian to f/u path from OR IMAGING: R foot XR: Suspect findings for acute osteomyelitis and soft tissue injury involving the 1st digit as described. Consider follow-up with MRI before and after intravenous gadolinium. ASSESSMENT: Ms. Nettles is a 55 yr old w NIDDM, Depression, DLP, HTN, CVA, SLE, obesity & LUDIVINA admitted for tx of right hallux osteomyelitis. PLAN: Right Hallux Osteomyelitis likely 2/2 to DM ulcer -01/18/21 right great toe amputation -WBC wnl, afebrile -Polymicrobial infection seen above on wound cx- sensitivities back. -Treated with IV Zosyn here -D/c with 7 days of PO clinda, pain meds, probiotic and f/u with Dr. Adrian after weekend -Wound care as listed in discharge instructions. NIDDM, controlled -HbA1c 6.3 -ISS , FS, CC diet TOMEKA -Low iron -Ferrous sulfate BID with BR can be added by PCP -Daily CBC SLE -Stable -Hydroxychloroquine Essential HTN -Stable -c/w amlodipine, Metoprolol, ACEi Depression / Anxiety -Very upset this AM -C/w home meds duloxetine, diazepam, trazodone Hx of CVA -Statin DLP -Atorvastatin LUDIVINA -BMI of 31.5 complicates care Resolved issues: Acute hypomagnesemia DISPOSITION: Cleared PT: home with walker at discharge. D/c with f/u with Dr. Adrian after weekend. TIME SPENT ON DISCHARGE: 35 minutes. Vital Signs/I&Os Vital Signs Date Time Temp Pulse Resp B/P (MAP) Pulse Ox O2 Delivery O2 Flow Rate FiO2 01/20/21 08:49 18 01/20/21 08:18 70 147/78 01/20/21 06:00 97.2 96 Room Air 01/17/21 18:28 3.0 I&O- Last 24 Hours up to 6 AM 01/20/21 06:00 Intake Total 1510 ml Balance 1510 ml Laboratory Data Labs 24H Laboratory Tests 2 01/19/21 16:53: Bedside Glucose (Misc Panel) 95 01/19/21 20:26: Bedside Glucose (Misc Panel) 134H 01/20/21 07:31: Nucleated Red Blood Cells % (auto) 0.0, Anion Gap 5L, Glomerular Filtration Rate > 60.0, Calcium Level 8.9 01/20/21 08:01: Bedside Glucose (Misc Panel) 120H 01/20/21 11:54: Bedside Glucose (Misc Panel) 112H CBC/BMP Laboratory Tests 01/20/21 07:31 FSBS Laboratory Tests Test 01/19/21 16:53 01/19/21 20:26 01/20/21 08:01 01/20/21 11:54 Range/Units Bedside Glucose (Misc Panel) 95 134 120 112 70-105 MG/DL Microbiology Microbiology 01/17/21 Respiratory Virus Panel (PCR) (JANET) - Final, Complete 01/17/21 Blood Culture - Preliminary, Resulted No Growth after 72 hours. All specime... 01/17/21 Anaerobic Culture, Received Pending 01/17/21 Gram Stain - Final, Complete 01/17/21 Wound Culture - Final, Complete Staphylococcus Aureus Streptococcus Group G Bacillus Sp., Not Anthracis Discharge Medications Scheduled Amlodipine Besylate (Amlodipine Besylate) 5 Mg Tab, 5 MG PO DAILY, (Reported) Atorvastatin Calcium (Atorvastatin Calcium) 20 Mg Tab, 20 MG PO DAILY, (Reported) Buspirone HCl (Buspirone HCl) 5 Mg Tablet, 10 MG PO QHS, (Reported) Cholecalciferol (Vitamin D3) (Vitamin D3) 1,000 Unit Tablet, 1,000 UNITS PO DAILY, (Reported) Clindamycin Hcl (Clindamycin HCl) 150 Mg Capsule, 300 MG PO TID Duloxetine Hcl (Duloxetine HCl) 60 Mg Capsule.dr, 120 MG PO DAILY, (Reported) Exenatide Microspheres (Bydureon Bcise) 2 Mg/0.85 Ml Auto.injct, 2 MG SC QWEEK, (Reported) WEDNESDAYS Lisinopril (Lisinopril) 5 Mg Tab, 5 MG PO QHS, (Reported) Metformin HCl (Metformin HCl ER) 500 Mg Tab.er.24h, 1,000 MG PO BID, (Reported) Metoprolol Tartrate (Metoprolol Tartrate) 25 Mg Tab, 75 MG PO BID, (Reported) Pantoprazole Sodium (Pantoprazole Sodium) 40 Mg Tab, 40 MG PO DAILY, (Reported) Saccharomyces Boulardii (Probiotic) 250 Mg Capsule, 250 MG PO BIDWM Trazodone HCl (Trazodone HCl) 150 Mg Tablet, 150 MG PO QHS, (Reported) Scheduled PRN Acetaminophen (Acetaminophen) 325 Mg Tablet, 650 MG PO Q6HP PRN for PAIN OR FEVER Diazepam (Valium) 5 Mg Tab, 5 MG PO TID PRN for SEIZURES, (Reported) Tramadol HCl (Tramadol HCl) 50 Mg Tablet, 50 MG PO Q6HP PRN for pain Allergies Coded Allergies: DYE'S (COLOR'S NOT IODINATED) (Verified Allergy, Unknown, HAIR DYE, ) Chantel Lazo MD January 20, 2021 16:40
== END 2021-01-20 12:30 | disposition home or self-care (01) | DRG 617 ==
LOC: M MSPAV 23:06
PROVIDERS: ADMIT Internal Medicine; ATTEND Internal Medicine
PROC: 0Y6P0Z2 Detachment at Right 1st Toe, Mid, Open Approach (ICD-10-PCS; principal; 2021-01-17 16:00)
DX: E11.69 Type 2 diabetes mellitus with other specified complication (principal); M86.171 Other acute osteomyelitis, right ankle and foot; L97.514 Non-pressure chronic ulcer of other part of right foot with necrosis of bone; E11.621 Type 2 diabetes mellitus with foot ulcer; F32.9 Major depressive disorder, single episode, unspecified; K21.9 Gastro-esophageal reflux disease without esophagitis; E78.5 Hyperlipidemia, unspecified; I10 Essential (primary) hypertension; E66.9 Obesity, unspecified; G47.33 Obstructive sleep apnea (adult) (pediatric); Z98.41 Cataract extraction status, right eye; Z98.42 Cataract extraction status, left eye; Z98.1 Arthrodesis status; D50.9 Iron deficiency anemia, unspecified; M32.9 Systemic lupus erythematosus, unspecified; Z68.31 Body mass index [BMI] 31.0-31.9, adult; Z79.84 Long term (current) use of oral hypoglycemic drugs; Z79.899 Other long term (current) drug therapy; Z91.048 Other nonmedicinal substance allergy status; E83.42 Hypomagnesemia; G40.909 Epilepsy, unspecified, not intractable, without status epilepticus; J44.9 Chronic obstructive pulmonary disease, unspecified; Z20.822 Contact with and (suspected) exposure to COVID-19

== ENCOUNTER → 2021-05-28 | Outpatient (REF) | payer MEDICARE, MEDICAID ==
[~2021-05-28] MED LIST changes: +ACET1TAB55 PO; +BUSP5TA PO; +BYDU2INJ7 SC; +CLIN150C17 PO; +D31000TA2 PO; +DULO1CAP6 PO; +METF-723 PO; +PROB250C PO; +TRAM50TA2 PO; +TRAZ1TAB14 PO
[2021-05-28 19:12] LABS: CREATININE, URINE 90.8 MG/DL; MALB URINE SIEMENS 50.5 MG/L; MAU/CREAT RATIO 55.6 MCG/MG (0.0-30.0)
== END ==
LOC: M LAB REF 17:07
PROVIDERS: ATTEND Nurse Practitioner Family
DX: E11.9 Type 2 diabetes mellitus without complications (principal)

== ENCOUNTER → 2022-02-27 | Outpatient (CLI) | payer MEDICARE, MEDICAID ==
[~2022-02-27] MED LIST changes: -CITA40TA4 PO; +CITA40TA7 PO; -D31000TA2 PO; -LISI-898 PO; +LISI5TAB11 PO; +VITA100093 PO
== END ==
LOC: M CLY 11:13
PROVIDERS: ATTEND Family Medicine
DX: M25.551 Pain in right hip (principal)

== ENCOUNTER 2022-07-31 15:24 | Inpatient (IN) | payer MEDICARE, MEDICAID ==
[~2022-07-31] VITALS: Ht 172.7 cm; Wt 99.3 kg
[2022-07-31] MEDS ORDERED: PIPERACILLIN/TAZOBACTAM SOD 3.375 GM in D5W MINI-BAG PLUS 50 ML IV ONE (16:30)
[2022-07-31 16:40] LABS: BASO # 0.1 10^3/uL (0.0-0.2); BASO % 0.7 % (0.0-1.0); EOS # 0.2 10^3/uL (0.0-0.5); EOS % 2.5 % (0.0-3.0); HEMATOCRIT 39.5 % (36.0-47.0); HEMOGLOBIN 12.1 g/dl (12.0-15.5); LYMPH # 2.5 10^3/uL (1.5-5.0); LYMPH % 31.1 % (24.0-44.0); MEAN CORPUSCULAR HEMOGLOBIN 23.1 pg (27.0-33.0); MEAN CORPUSCULAR HGB CONC 30.6 g/dl (32.0-36.5); MEAN CORPUSCULAR VOLUME 75.4 fl (80.0-96.0); MONO # 0.7 10^3/uL (0.0-0.8); MONO % 8.9 % (2.0-8.0); NEUTROPHILS # 4.6 10^3/uL (1.5-8.5); NEUTROPHILS % 56.4 % (36.0-66.0); PLATELET COUNT, AUTOMATED 317 10^3/uL (150-450); RED BLOOD COUNT 5.24 10^6/uL (4.00-5.40); WHITE BLOOD COUNT 8.1 10^3/uL (4.0-10.0)
[2022-07-31 17:02] LABS: LIPASE 68 U/L (12-53)
[2022-07-31 17:04] LABS: ALBUMIN 3.5 G/DL (3.2-5.2); ALKALINE PHOSPHATASE 94 U/L (46-116); ALT/SGPT 27 U/L (7.0-40); AST/SGOT 18 U/L (<34); BILIRUBIN,DIRECT 0.1 MG/DL (<0.4); BILIRUBIN,TOTAL 0.4 MG/DL (0.3-1.2); BLOOD UREA NITROGEN 22 MG/DL (9-23); CARBON DIOXIDE LEVEL 21 MMOL/L (20-31); CHLORIDE LEVEL 104 MMOL/L (98-107); CREATININE FOR GFR 0.85 MG/DL (0.55-1.30); GLOMERULAR FILTRATION RATE > 60.0 (>51); GLUCOSE, FASTING 173 MG/DL (60-100); POTASSIUM SERUM 4.4 MMOL/L (3.5-5.1); SODIUM LEVEL 134 MMOL/L (136-145); TOTAL PROTEIN 7.5 G/DL (5.7-8.2)
[2022-07-31 17:48] LABS: ERYTHROCYTE SEDIMENTATION RATE 29 mm/hr (0-30)
[2022-07-31 17:50] LABS: INR 0.93; PROTHROMBIN TIME 12.7 SECONDS (12.5-14.5)
[2022-07-31] MEDS ORDERED: FARX1TAB5 PO (18:03)
[2022-07-31] MEDS ORDERED: BUSP30TA2 PO (18:03)
[2022-07-31] MEDS ORDERED: AMIT50TA PO (18:03)
[2022-07-31] MEDS ORDERED: APAP325T4 PO (18:03)
[2022-07-31] MEDS ORDERED: HYDR50TA70 PO (18:03)
[2022-07-31] MEDS ORDERED: HOME MED LIST COMPLETE! XX SCH (18:05)
[2022-07-31] MEDS ORDERED: DEXTROSE 50% 50 ML SYRINGE IV PRN (19:05)
[2022-07-31] MEDS ORDERED: GLUCOSE 4GM CHEW TABLET PO PRN (19:05)
[2022-07-31] MEDS ORDERED: GLUCAGON INJ 1MG VIAL SC PRN (19:05)
[2022-07-31] MEDS ORDERED: VANCOMYCIN HCL 1,000 MG, VIAL MATE ADAPTER 1 EACH in D5W 250 ML IV ONE (20:00)
[2022-07-31 23:26] VITALS: BP 162/64
[2022-07-31] MEDS: PIPERACILLIN/TAZOBACTAM SOD 3.375 GM in D5W MINI-BAG PLUS 50 ML IV SCH (23:46)
[2022-07-31] MEDS: METOPROLOL TART 50 MG TAB PO SCH (23:46)
[2022-07-31] MEDS: AMITRIPTYLINE 50 MG TAB PO SCH (23:46)
[2022-08-01] VITALS (8 sets, daily range): BP systolic 120–185; BP diastolic 64–83
[2022-08-01] MEDS: INSULIN LISPRO (NovoLOG) PER UNIT SC SCH ×5 (00:24→21:00)
[2022-08-01] MEDS: busPIRone 10 MG TAB PO SCH ×2 (00:34→21:32)
[2022-08-01] MEDS: PIPERACILLIN/TAZOBACTAM SOD 3.375 GM in D5W MINI-BAG PLUS 50 ML IV SCH ×3 (05:38→17:48)
[2022-08-01 06:34] LABS: BASO % 0.7 % (0.0-1.0); EOS # 0.1 10^3/uL (0.0-0.5); EOS % 2.3 % (0.0-3.0); HEMATOCRIT 39.2 % (36.0-47.0); HEMOGLOBIN 11.9 g/dl (12.0-15.5); LYMPH # 2.2 10^3/uL (1.5-5.0); LYMPH % 39.6 % (24.0-44.0); MEAN CORPUSCULAR HEMOGLOBIN 23.2 pg (27.0-33.0); MEAN CORPUSCULAR HGB CONC 30.4 g/dl (32.0-36.5); MEAN CORPUSCULAR VOLUME 76.3 fl (80.0-96.0); MONO # 0.6 10^3/uL (0.0-0.8); MONO % 10.6 % (2.0-8.0); NEUTROPHILS # 2.6 10^3/uL (1.5-8.5); NEUTROPHILS % 46.3 % (36.0-66.0); PLATELET COUNT, AUTOMATED 291 10^3/uL (150-450); RED BLOOD COUNT 5.14 10^6/uL (4.00-5.40); WHITE BLOOD COUNT 5.6 10^3/uL (4.0-10.0)
[2022-08-01 06:50] LABS: BLOOD UREA NITROGEN 15 MG/DL (9-23); CALCIUM LEVEL 8.8 MG/DL (8.5-10.1); CARBON DIOXIDE LEVEL 24 MMOL/L (20-31); CHLORIDE LEVEL 107 MMOL/L (98-107); CREATININE FOR GFR 0.75 MG/DL (0.55-1.30); GLOMERULAR FILTRATION RATE > 60.0 (>51); GLUCOSE, FASTING 124 MG/DL (60-100); POTASSIUM SERUM 4.1 MMOL/L (3.5-5.1); SODIUM LEVEL 139 MMOL/L (136-145)
[2022-08-01] MEDS ORDERED: VANCOMYCIN HCL 500 MG, VIAL MATE ADAPTER 1 EACH in NS 250 ML IV SCH (08:00)
[2022-08-01] MEDS: ATORVASTATIN 20 MG TAB PO SCH (08:17)
[2022-08-01] MEDS: PANTOPRAZOLE 40MG TAB (PROTONIX) PO SCH (08:17)
[2022-08-01] MEDS: DULoxetine 30MG CAPSULE (CYMBALTA) PO SCH (08:17)
[2022-08-01] MEDS: amLODIPine 5 MG TAB PO SCH (08:18)
[2022-08-01] MEDS: HEPARIN SOD (PORCINE) 5000UNITS/ML 1ML VIAL/SYRINGE SC SCH ×2 (08:18→21:00)
[2022-08-01] MEDS: METOPROLOL TART 50 MG TAB PO SCH ×2 (08:18→21:31)
[2022-08-01] MEDS ORDERED: LIDOCAINE 1% SDV 30ML VIAL As Ordered ONE (15:16)
[2022-08-01] MEDS ORDERED: BUPIVACAINE HCL 0.5% 30ML VIAL As Ordered ONE (15:17)
[2022-08-01] MEDS ORDERED: MIDAZOLAM INJ 2MG/2ML VIAL (J2250 PER 1MG) As Ordered ONE (15:24)
[2022-08-01] MEDS ORDERED: propofoL 500 MG/50 ML VIAL As Ordered ONE (15:25)
[2022-08-01] MEDS ORDERED: LIDOCAINE 2% 100MG/5ML SDV (FOR ANES.) As Ordered ONE (15:25)
[2022-08-01] MEDS ORDERED: fentaNYL 100 MCG/2 ML INJECTION As Ordered ONE (15:25)
[2022-08-01] MEDS ORDERED: ONDANSETRON 4MG 2ML VIAL IV PRN (16:40)
[2022-08-01] MEDS ORDERED: INSULIN LISPRO (NovoLOG) PER UNIT SC PRN (16:40)
[2022-08-01] MEDS ORDERED: oxyCODONE 5MG TAB PO PRN (16:40)
[2022-08-01] MEDS ORDERED: METOCLOPRAMIDE INJ 10MG/2ML VIAL IV PRN (16:40)
[2022-08-01] MEDS ORDERED: fentaNYL 100 MCG/2 ML INJECTION IV PRN (16:40)
[2022-08-01] MEDS ORDERED: LR 1,000 ML IV SCH (16:40)
[2022-08-01] MEDS: VANCOMYCIN HCL 750 MG, VIAL MATE ADAPTER 1 EACH in D5W 250 ML IV SCH ×2 (21:31→23:16)
[2022-08-01] MEDS: AMITRIPTYLINE 50 MG TAB PO SCH (21:31)
[2022-08-02] MEDS: PIPERACILLIN/TAZOBACTAM SOD 3.375 GM in D5W MINI-BAG PLUS 50 ML IV SCH ×4 (00:51→17:06)
[2022-08-02 02:30] VITALS: BP 118/63
[2022-08-02 05:34] LABS: BASO % 0.6 % (0.0-1.0); EOS # 0.1 10^3/uL (0.0-0.5); EOS % 1.9 % (0.0-3.0); HEMATOCRIT 37.1 % (36.0-47.0); HEMOGLOBIN 11.4 g/dl (12.0-15.5); LYMPH # 1.9 10^3/uL (1.5-5.0); LYMPH % 27.6 % (24.0-44.0); MEAN CORPUSCULAR HEMOGLOBIN 23.4 pg (27.0-33.0); MEAN CORPUSCULAR HGB CONC 30.7 g/dl (32.0-36.5); MONO # 0.8 10^3/uL (0.0-0.8); NEUTROPHILS # 3.9 10^3/uL (1.5-8.5); NEUTROPHILS % 57.6 % (36.0-66.0); PLATELET COUNT, AUTOMATED 271 10^3/uL (150-450); RED BLOOD COUNT 4.88 10^6/uL (4.00-5.40); WHITE BLOOD COUNT 6.8 10^3/uL (4.0-10.0)
[2022-08-02 06:08] LABS: BLOOD UREA NITROGEN 12 MG/DL (9-23); CALCIUM LEVEL 8.8 MG/DL (8.5-10.1); CARBON DIOXIDE LEVEL 24 MMOL/L (20-31); CHLORIDE LEVEL 109 MMOL/L (98-107); CREATININE FOR GFR 0.76 MG/DL (0.55-1.30); GLOMERULAR FILTRATION RATE > 60.0 (>51); GLUCOSE, FASTING 178 MG/DL (60-100); POTASSIUM SERUM 4.2 MMOL/L (3.5-5.1); SODIUM LEVEL 139 MMOL/L (136-145)
[2022-08-02 06:30] VITALS: BP 115/63
[2022-08-02] MEDS ORDERED: ACETAMINOPHEN TAB 650MG DOSE (2X325MG) PO PRN (08:05)
[2022-08-02] MEDS: VANCOMYCIN HCL 750 MG, VIAL MATE ADAPTER 1 EACH in D5W 250 ML IV SCH ×4 (08:20→22:03)
[2022-08-02] MEDS: INSULIN LISPRO (NovoLOG) PER UNIT SC SCH ×4 (08:21→20:36)
[2022-08-02] MEDS: DULoxetine 30MG CAPSULE (CYMBALTA) PO SCH (08:21)
[2022-08-02] MEDS: ATORVASTATIN 20 MG TAB PO SCH (08:22)
[2022-08-02] MEDS: METOPROLOL TART 50 MG TAB PO SCH ×2 (08:22→20:31)
[2022-08-02] MEDS: amLODIPine 5 MG TAB PO SCH (08:22)
[2022-08-02] MEDS: HEPARIN SOD (PORCINE) 5000UNITS/ML 1ML VIAL/SYRINGE SC SCH (08:22)
[2022-08-02] MEDS: PANTOPRAZOLE 40MG TAB (PROTONIX) PO SCH (08:22)
[2022-08-02] MEDS ORDERED: KETOROLAC 30 MG/ML 1ML VIAL IV ONE (08:30)
[2022-08-02 08:36] LABS: VANCOMYCIN RANDOM 17.5 UG/ML
[2022-08-02 10:00] VITALS: BP 147/84
[2022-08-02 14:00] VITALS: BP 146/83
[2022-08-02] MEDS ORDERED: NAPROXEN 250 MG TAB PO PRN (14:00)
[2022-08-02 18:00] VITALS: BP 147/81
[2022-08-02] MEDS ORDERED: oxyCODONE 5MG TAB PO ONE (18:25)
[2022-08-02] MEDS: busPIRone 10 MG TAB PO SCH (20:29)
[2022-08-02] MEDS: AMITRIPTYLINE 50 MG TAB PO SCH (20:29)
[2022-08-02] MEDS: ACETAMINOPHEN 500 MG TAB PO SCH (20:30)
[2022-08-02 22:00] VITALS: BP 147/80
[2022-08-03] MEDS ORDERED: KETOROLAC 30 MG/ML 1ML VIAL IV PRN
[2022-08-03] MEDS: PIPERACILLIN/TAZOBACTAM SOD 3.375 GM in D5W MINI-BAG PLUS 50 ML IV SCH ×3 (00:01→11:50)
[2022-08-03 06:00] VITALS: BP 129/71
[2022-08-03 07:19] LABS: BASO # 0.1 10^3/uL (0.0-0.2); BASO % 0.8 % (0.0-1.0); EOS # 0.2 10^3/uL (0.0-0.5); EOS % 2.6 % (0.0-3.0); HEMATOCRIT 36.6 % (36.0-47.0); HEMOGLOBIN 11.3 g/dl (12.0-15.5); LYMPH % 30.2 % (24.0-44.0); MEAN CORPUSCULAR HEMOGLOBIN 23.3 pg (27.0-33.0); MEAN CORPUSCULAR HGB CONC 30.9 g/dl (32.0-36.5); MEAN CORPUSCULAR VOLUME 75.3 fl (80.0-96.0); MONO # 0.8 10^3/uL (0.0-0.8); MONO % 11.5 % (2.0-8.0); NEUTROPHILS # 3.6 10^3/uL (1.5-8.5); NEUTROPHILS % 54.6 % (36.0-66.0); PLATELET COUNT, AUTOMATED 275 10^3/uL (150-450); RED BLOOD COUNT 4.86 10^6/uL (4.00-5.40); WHITE BLOOD COUNT 6.6 10^3/uL (4.0-10.0)
[2022-08-03] MEDS: INSULIN LISPRO (NovoLOG) PER UNIT SC SCH ×2 (07:30→12:33)
[2022-08-03 07:48] LABS: CALCIUM LEVEL 8.9 MG/DL (8.5-10.1); CREATININE FOR GFR 1.24 MG/DL (0.55-1.30); GLOMERULAR FILTRATION RATE 47.5 (>51)
[2022-08-03] MEDS ORDERED: NORCO, ANEXSIA 5/325MG TABLET (HYDROcodone/ACETAMINOPHEN) PO PRN (08:00)
[2022-08-03 08:11] LABS: VANCOMYCIN LEVEL TROUGH 27.3 UG/ML (10.0-20.0)
[2022-08-03 09:52] VITALS: BP 130/76
[2022-08-03] MEDS: ATORVASTATIN 20 MG TAB PO SCH (09:52)
[2022-08-03] MEDS: METOPROLOL TART 50 MG TAB PO SCH (09:52)
[2022-08-03] MEDS: PANTOPRAZOLE 40MG TAB (PROTONIX) PO SCH (09:52)
[2022-08-03] MEDS: ACETAMINOPHEN 500 MG TAB PO SCH (09:53)
[2022-08-03] MEDS: DULoxetine 30MG CAPSULE (CYMBALTA) PO SCH (09:53)
[2022-08-03] MEDS: amLODIPine 5 MG TAB PO SCH (09:53)
[2022-08-03] MEDS ORDERED: CEPHALEXIN 500 MG CAP PO SCH (13:00)
[2022-08-03] MEDS ORDERED: HYDR-3715 PO (13:07)
[2022-08-03] MEDS ORDERED: CEPH500C PO (13:07)
[2022-08-03 14:00] VITALS: BP 121/74
== END 2022-08-03 16:07 | disposition home or self-care (01) | DRG 617 ==
LOC: M ED 15:24 → M ED INP 17:51 → ENRESERV 20:29 → M MSPAV 23:22
PROVIDERS: ADMIT Internal Medicine Nephrology; ATTEND Internal Medicine Nephrology
PROC: 0Y6T0Z0 Detachment at Right 3rd Toe, Complete, Open Approach (ICD-10-PCS; principal; 2022-08-01 15:30)
DX: E11.69 Type 2 diabetes mellitus with other specified complication (principal); I69.354 Hemiplegia and hemiparesis following cerebral infarction affecting left non-dominant side; M86.8X7 Other osteomyelitis, ankle and foot; I10 Essential (primary) hypertension; F31.9 Bipolar disorder, unspecified; M54.50 Low back pain, unspecified; G89.29 Other chronic pain; E11.40 Type 2 diabetes mellitus with diabetic neuropathy, unspecified; E78.5 Hyperlipidemia, unspecified; R32 Unspecified urinary incontinence; G47.33 Obstructive sleep apnea (adult) (pediatric); K21.9 Gastro-esophageal reflux disease without esophagitis; Z98.41 Cataract extraction status, right eye; Z98.42 Cataract extraction status, left eye; Z98.1 Arthrodesis status; Z86.79 Personal history of other diseases of the circulatory system; F17.200 Nicotine dependence, unspecified, uncomplicated; M19.90 Unspecified osteoarthritis, unspecified site; E61.1 Iron deficiency; Z89.411 Acquired absence of right great toe; Z79.84 Long term (current) use of oral hypoglycemic drugs; Z79.899 Other long term (current) drug therapy; Z91.048 Other nonmedicinal substance allergy status

== ENCOUNTER → 2022-08-15 | Outpatient (REF) | payer MEDICARE, MEDICAID ==
[~2022-08-15] MED LIST changes: +AMIT50TA PO; +APAP325T4 PO; +BUSP30TA2 PO; +CEPH500C PO; +FARX1TAB5 PO
[2022-08-15 17:34] LABS: BASO # 0.1 10^3/uL (0.0-0.2); BASO % 0.8 % (0.0-1.0); EOS # 0.2 10^3/uL (0.0-0.5); EOS % 2.4 % (0.0-3.0); HEMOGLOBIN 11.3 g/dl (12.0-15.5); LYMPH # 2.1 10^3/uL (1.5-5.0); LYMPH % 24.4 % (24.0-44.0); MEAN CORPUSCULAR HEMOGLOBIN 23.7 pg (27.0-33.0); MEAN CORPUSCULAR HGB CONC 30.5 g/dl (32.0-36.5); MEAN CORPUSCULAR VOLUME 77.6 fl (80.0-96.0); MONO # 0.8 10^3/uL (0.0-0.8); MONO % 8.8 % (2.0-8.0); NEUTROPHILS # 5.5 10^3/uL (1.5-8.5); NEUTROPHILS % 63.1 % (36.0-66.0); PLATELET COUNT, AUTOMATED 308 10^3/uL (150-450); RED BLOOD COUNT 4.77 10^6/uL (4.00-5.40); WHITE BLOOD COUNT 8.7 10^3/uL (4.0-10.0)
[2022-08-15 18:04] LABS: ALBUMIN 3.2 G/DL (3.2-5.2); BILIRUBIN,TOTAL 0.3 MG/DL (0.3-1.2); CALCIUM LEVEL 8.9 MG/DL (8.5-10.1); CREATININE FOR GFR 1.05 MG/DL (0.55-1.30); GLOMERULAR FILTRATION RATE 57.5 (>51); POTASSIUM SERUM 4.7 MMOL/L (3.5-5.1); TOTAL PROTEIN 7.2 G/DL (5.7-8.2)
== END ==
LOC: M SFHCCLAY 13:17
PROVIDERS: ATTEND Family Medicine
DX: Z89.421 Acquired absence of other right toe(s) (principal); S91.301A Unspecified open wound, right foot, initial encounter

== ENCOUNTER → 2022-08-15 | Outpatient (CLI) | payer MEDICARE, MEDICAID | LOC: M CLY 13:31 | PROVIDERS: ATTEND Family Medicine | DX: S91.301A Unspecified open wound, right foot, initial encounter (principal); Z89.421 Acquired absence of other right toe(s); X58.XXXA Exposure to other specified factors, initial encounter; Y92.9 Unspecified place or not applicable; Y93.9 Activity, unspecified; Y99.9 Unspecified external cause status ==